=== PATIENT | female | born 1940 | race Hispanic/Latino ===

== ENCOUNTER 2017-09-25 09:20 | Emergency (ER) | payer MEDICARE | END 2017-09-25 10:42 | disposition home or self-care (01) | LOC: EDH 09:20 | DX: E78.5 Hyperlipidemia, unspecified (principal); I10 Essential (primary) hypertension; F41.9 Anxiety disorder, unspecified; Z98.890 Other specified postprocedural states | CPT/HCPCS: 99281 ==

== ENCOUNTER 2018-03-24 04:46 | Emergency (ER) | payer OTHER, MEDICARE ==
[2018-03-24] MEDS ORDERED: MECLIZINE HCL 25 MG TABLET ONE (05:14)
[2018-03-24 05:32] LABS: BASOPHILS % (AUTO) 0.3 % (0.0-5.0); HEMATOCRIT 38.7 % (36-48); LYMPHOCYTES % (AUTO) 30.5 % (21.0-51.0); MEAN CORPUSCULAR HEMOGLOBIN 27.7 pg (27.0-33.0); MEAN CORPUSCULAR HGB CONC 33.5 g/dL (32.0-36.0); MEAN CORPUSCULAR VOLUME 82.6 fL (79-99); MONOCYTES % (AUTO) 10.8 % (3.0-13.0); NEUTROPHILS % (AUTO) 56.4 % (40.0-77.0); PLATELET COUNT (AUTO) 183 K/uL (130-400); RED BLOOD CELL COUNT(AUTO) 4.68 MIL/uL (4.00-5.50); RED CELL DISTRIBUTION WIDTH 15.2 % (11.0-15.5)
[2018-03-24 05:39] LABS: CREATININE 0.7 mg/dL (0.5-1.5); POTASSIUM 3.7 mmol/L (3.5-5.1)
[2018-03-24 05:43] LABS: ALBUMIN 3.5 g/dL (3.5-5.0); BILIRUBIN,TOTAL 0.7 mg/dL (0.2-1.0); TOTAL PROTEIN, SERUM 6.6 g/dL (6.0-8.3)
[2018-03-24 06:30] LABS: APPEARANCE,URINE CLEAR (CLEAR); BILIRUBIN,URINE NEGATIVE (NEGATIVE); COLOR,URINE YELLOW (YELLOW); GLUCOSE, URINE (UA) NEGATIVE (NEGATIVE); KETONES,URINE NEGATIVE (NEGATIVE); LEUKOCYTE ESTERASE ,URINE NEGATIVE (NEGATIVE); NITRATE,URINE NEGATIVE (NEGATIVE); OCCULT BLOOD,URINE NEGATIVE (NEGATIVE); PROTEIN,URINE NEGATIVE (NEGATIVE); UROBILINOGEN,URINE 0.2 mg/dL (0.2-1.0)
[2018-03-24] MEDS ORDERED: SODIUM CHLORIDE 0.9% 500ML 500 ML IV ONE (06:53)
== END 2018-03-24 07:35 | disposition home or self-care (01) ==
LOC: EDH 04:46
DX: H81.399 Other peripheral vertigo, unspecified ear (principal); E86.0 Dehydration; E78.5 Hyperlipidemia, unspecified; I10 Essential (primary) hypertension; F41.9 Anxiety disorder, unspecified; I25.10 Atherosclerotic heart disease of native coronary artery without angina pectoris; Z98.890 Other specified postprocedural states; Z72.0 Tobacco use
CPT/HCPCS: 36415; 80053; 81003; 85025; 93005; 99284; J7040

== ENCOUNTER 2018-12-26 14:31 | Emergency (ER) | payer OTHER, MEDICARE ==
[2018-12-26] MEDS ORDERED: IPRATROPIUM/ALBUTEROL SULFATE 3 ML SOLUTION IH ONE (14:55)
[2018-12-26 15:02] LABS: BASOPHILS % (AUTO) 0.4 % (0.0-5.0); EOSINOPHILS % (AUTO) 2.1 % (0.0-8.0); HEMATOCRIT 37.3 % (36-48); LYMPHOCYTES % (AUTO) 14.3 % (21.0-51.0); MEAN CORPUSCULAR HEMOGLOBIN 27.3 pg (27.0-33.0); MEAN CORPUSCULAR VOLUME 80.3 fL (79-99); NEUTROPHILS % (AUTO) 74.2 % (40.0-77.0); PLATELET COUNT (AUTO) 205 K/uL (130-400); RED BLOOD CELL COUNT(AUTO) 4.65 MIL/uL (4.00-5.50); RED CELL DISTRIBUTION WIDTH 16.3 % (11.0-15.5); WHITE BLOOD COUNT (AUTO) 6.2 K/uL (4.8-10.8)
[2018-12-26 15:08] LABS: CREATININE 0.8 mg/dL (0.5-1.5); POTASSIUM 3.5 mmol/L (3.5-5.1)
== END 2018-12-26 15:41 | disposition home or self-care (01) ==
LOC: EDH 14:31
DX: J06.9 Acute upper respiratory infection, unspecified (principal); F41.9 Anxiety disorder, unspecified; E78.5 Hyperlipidemia, unspecified; I10 Essential (primary) hypertension; I25.10 Atherosclerotic heart disease of native coronary artery without angina pectoris; Z72.0 Tobacco use; Z88.0 Allergy status to penicillin; Z98.890 Other specified postprocedural states
CPT/HCPCS: 36415; 71046; 80048; 85025; 87804; 94640

== ENCOUNTER 2019-02-09 05:02 | Emergency (ER) | payer OTHER, MEDICARE ==
[2019-02-09] MEDS ORDERED: ACETAMINOPHEN-CODEINE 300/30MG TAB ONE (05:56)
[2019-02-09] MEDS ORDERED: ACETAMINOPHEN EXTRA STRENGTH 500 MG TABLET ONE (05:58)
== END 2019-02-09 09:07 | disposition home or self-care (01) ==
LOC: EDH 05:02
DX: S40.012A Contusion of left shoulder, initial encounter (principal); S00.12XA Contusion of left eyelid and periocular area, initial encounter; M62.838 Other muscle spasm; R07.89 Other chest pain; I25.10 Atherosclerotic heart disease of native coronary artery without angina pectoris; E78.5 Hyperlipidemia, unspecified; I10 Essential (primary) hypertension; F41.9 Anxiety disorder, unspecified; Z88.0 Allergy status to penicillin; Z88.8 Allergy status to other drugs, medicaments and biological substances; Z98.890 Other specified postprocedural states; Z72.0 Tobacco use; W18.09XA Striking against other object with subsequent fall, initial encounter; Y93.01 Activity, walking, marching and hiking; Y92.89 Other specified places as the place of occurrence of the external cause; Y99.8 Other external cause status
CPT/HCPCS: 70450; 70486; 72125; 84484; 93005

== ENCOUNTER 2024-03-18 06:28 | Observation (INO) | payer OTHER, MEDICARE ==
[~2024-03-18] VITALS: Ht 160 cm; Wt 69.4 kg
[~2024-03-18 06:28] MED LIST: ALPR0.255 PO; AMLO-258 PO; ASPI-1005 PO; ATOR10 PO; METO-391 PO; MUPI22OI2 TP; OLME40TA18 PO; POTA-200 PO
[2024-03-18 07:03] LABS: BASOPHILS # (AUTO) 0.02 K/uL (0.00-0.20); BASOPHILS % (AUTO) 0.3 % (0.0-5.0); EOSINOPHILS # (AUTO) 0.05 K/uL (0.00-0.70); EOSINOPHILS % (AUTO) 0.9 % (0.0-8.0); HEMATOCRIT 35.5 % (36-48); IMMATURE GRANULOCYTE ABSOLUTE 0.04 K/uL (0-1); LYMPHOCYTES # (AUTO) 1.2 K/uL (1.0-4.8); LYMPHOCYTES % (AUTO) 20.8 % (21.0-51.0); MEAN CORPUSCULAR HEMOGLOBIN 28.1 pg (27.0-33.0); MEAN CORPUSCULAR HGB CONC 33.5 g/dL (32.0-36.0); MEAN CORPUSCULAR VOLUME 83.7 fL (79-99); MONOCYTES # (AUTO) 0.6 K/uL (0.1-1.0); MONOCYTES % (AUTO) 9.9 % (3.0-13.0); NEUTROPHILS % (AUTO) 67.4 % (40.0-77.0); PLATELET COUNT (AUTO) 245 K/uL (130-400); RED BLOOD CELL COUNT(AUTO) 4.24 MIL/uL (4.00-5.50); RED CELL DISTRIBUTION WIDTH 14.8 % (11.0-15.5); WHITE BLOOD COUNT (AUTO) 5.9 K/uL (4.8-10.8)
--- NOTE | 2024-03-18 07:14 | EKG ---
[facility] Test Date: 2024-03-18 Test Time: 07:04:11 Pat Name: JOSETTE LOJA Department: [facility] Room: ED Gender: F Academic Dean: [id number] : 1940 Requested By: KEILA BAILEY Order Number: [id number] Reading MD: Shiloh Wagner Measurements Intervals [place] Rate: 55 P: 23 ID: 142 QRS: -38 QRSD: 104 T: 51 QT: 478 QTc: 459 Interpretive Statements Sinus rhythm Incomplete RBBB and LAFB Compared to ECG 01/25/2024 06:37:12 Incomplete right bundle-branch block now present Right bundle-branch block now present Electronically Signed On 03-18-2024 13:14:56 [employer] by Shiloh Wagner Please click the below link to view image of tracing.
--- NOTE | 2024-03-18 07:17 | ERN ---
General Chief Complaint: Syncope Stated Complaint: WEAKNESS, SYNCOPAL EPISODE THIS MORNING Time Seen by MD: 07:08 Source: patient History of Present Illness Initial Comments Patient is a an 83-year-old female coming in to be evaluated after she had a s yncopal episode. Patient states that earlier in the morning she was combing her hair and next thing she remembers has been on the floor. Patient has also been complaining of a cough for a couple of days. Patient also disclose that she has been having left sided headaches for a couple of days. Allergies: Coded Allergies: Penicillins (Unverified Allergy, Unknown, 02/09/19) diphenhydramine (Unverified Allergy, Unknown, 02/09/19) Home Meds Active Scripts Mupirocin (Mupirocin Ointment) 2 % Oint, 0 APPL TP TID, #1 APPL 0 Refills One application to clean left ankle skin tear3 times a day for 10 days. Prov:MOSES WHITING 01/27/24 Reported Medications Aspirin (ASPIRIN 81MG CHEW TAB) 81 Mg Tab.chew, 1 TAB PO DAILY for 30 Days, #30 TAB 0 Refills 01/26/24 Atorvastatin Calcium (LIPITOR) 20 Mg Tab, 1 TAB PO DAILY for 30 Days, #30 TAB 0 Refills 01/25/24 Olmesartan Medoxomil (Olmesartan Medoxomil) 40 Mg Tablet, 1 TAB PO DAILY for 30 Days, #30 TAB 0 Refills 01/25/24 Alprazolam (Alprazolam) 0.25 Mg Tablet, 1 TAB PO TIDP PRN for anxiety for 30 Days, #90 TAB 0 Refills 01/25/24 Amlodipine Besylate (Amlodipine Besylate) 10 Mg Tablet, 1 TAB PO DAILY for 30 Days, #30 TAB 0 Refills 01/25/24 Potassium Chloride (Potassium Chloride) 10 Meq Tab.er.prt, 1 TAB PO DAILY for 30 Days, #30 TAB 0 Refills 01/25/24 Metoprolol Succinate (Metoprolol Succinate) 50 Mg Tab.er.24h, 1 TAB PO BID for 30 Days, #30 TAB 0 Refills 01/25/24 Past Medical History Past Medical History: COPD, High Cholesterol, Hypertension Past Surgical History: Other Family History Family History: Negative Social History Social History: Negative Female( History) History: Not Applicable ROS Dictation CONSTITUTIONAL: No chills, no fever, no weakness, no diaphoresis, no malaise. HEAD/FACE: No signs of trauma. EENT: No eye pain, no blurred vision, no tearing, no double vision, no ear pain, no ear discharge, no nose pain, no nasal congestion, no throat pain, no throat swelling, no mouth pain. RESPIRATORY: No cough, no orthopnea, no SOB, no stridor, no wheezing. CARDIOVASCULAR: No chest pain, no edema, no palpitations, no syncope. GASTROINTESTINAL/ABDOMINAL: No abdominal pain, no constipation, no diarrhea, no nausea, no vomiting. GENITOURINARY: No abnormal discharge, no dysuria, no frequent urination, no hematuria. No complaints of pain in the genitals. MUSCULOSKELETAL: No back pain, no gout, no joint pain, no joint swelling, no muscle pain, no muscle stiffness, no neck pain. INTEGUMENTARY: No change in color, no change in hair/nails, no dryness, no lesion, no lumps, no rash. NEUROLOGICAL/PSYCH: No anxiety, not depressed, no emotional problem, no h eadache, no numbness, no pre-existing deficit, no history of seizures, no tremors, no weakness. HEMATOLOGIC/LYMPHATIC: Not anemic, no history of blood clots, no apparent bleeding, no bruising, glands not swollen. All Systems Negative, Except as Noted. Physical Exam Physical Exam Dictation VITAL SIGNS: Reviewed. GENERAL APPEARANCE: Alert, oriented x3, no acute distress, obese. HEAD AND FACE: Non-traumatic. EYES: PERRL, pink conjunctivas, eyelid no trauma, anterior chamber clear. EARS: Pinnas intact and no signs of trauma or erythema. Ear canals clear and no discharge. TMs no erythema. NOSE: No discharge, no bleeding. OROPHARYNX: Mouth normal, teeth no caries, tongue pink. Pharynx clear, no erythema. Tonsils no exudates, no abscesses noted. Mucous membrane moist. NECK: Supple, non-tender, no thyromegaly, no masses, no JVD, no bruits. BREAST: Deferred. CHEST: No tenderness, no crepitus, no paradoxical movement, no retractions. LUNGS: Clear, well-ventilated, symmetric, no rales, no wheezing, no rhonchi, no stridor, good breath sounds bilaterally. HEART: Regular rate, regular rhythm, no murmur, no gallops. VASCULAR: No peripheral edema. ABDOMEN: Soft, positive bowel sounds, nondistended, no guarding, nontender, no rebound, no masses no hepatomegaly, no splenomegaly, no Wade's sign, no hernias. RECTAL: Deferred. GENITAL: Deferred. NEUROLOGICAL: Normal speech, gross motor function intact, gross sensory function intact. MUSCULOSKELETAL: Neck nontender, full range of motion, back nontender, full range of motion. EXTREMITIES: Nontender, full range of motion. SKIN: Color pink, dry, no turgor, no rash, no lacerations, no abrasions, no contusions. LYMPHATICS: Deferred. Results Laboratory and Microbiology Lab and Micro Result Laboratory Tests Test 03/18/24 06:49 03/18/24 06:58 03/18/24 08:41 White Blood Count 5.9 K/uL (4.8-10.8) Red Blood Count 4.24 MIL/uL (4.00-5.50) Hemoglobin 11.9 g/dL (12.0-16.0) L Hematocrit 35.5 % (36-48) L Mean Corpuscular Volume 83.7 fL (79-99) Mean Corpuscular Hemoglobin 28.1 pg (27.0-33.0) Mean Corpuscular Hemoglobin Concent 33.5 g/dL (32.0-36.0) Red Cell Distribution Width 14.8 % (11.0-15.5) Platelet Count 245 K/uL (130-400) Mean Platelet Volume 8.3 fL (7.5-10.5) Immature Granulocyte % (Auto) 0.7 % (0-1) Neutrophils (%) (Auto) 67.4 % (40.0-77.0) Lymphocytes (%) (Auto) 20.8 % (21.0-51.0) L Monocytes (%) (Auto) 9.9 % (3.0-13.0) Eosinophils (%) (Auto) 0.9 % (0.0-8.0) Basophils (%) (Auto) 0.3 % (0.0-5.0) Neutrophils # (Auto) 4.0 K/uL (1.8-7.7) Lymphocytes # (Auto) 1.2 K/uL (1.0-4.8) Monocytes # (Auto) 0.6 K/uL (0.1-1.0) Eosinophils # (Auto) 0.05 K/uL (0.00-0.70) Basophils # (Auto) 0.02 K/uL (0.00-0.20) Absolute Immature Granulocyte (auto 0.04 K/uL (0-1) Nucleated Red Blood Cells 0.0 % (0.0-0.19) Sodium Level 133 mmol/L (136-145) L Potassium Level 3.1 mmol/L (3.5-5.1) L Chloride Level 97 mmol/L (101-111) L Carbon Dioxide Level 27 mmol/L (21-32) Blood Urea Nitrogen 8 mg/dL (7-18) Creatinine 0.9 mg/dL (0.5-1.0) Glomerular Filtration Rate Calc 64 mL/min (>90) Random Glucose 113 mg/dL (70-105) H Total Calcium 8.9 mg/dL (8.5-10.1) Magnesium Level 1.80 mg/dL (1.80-2.40) Troponin I High Sensitivity 10 ng/L (4-50) B-Type Natriuretic Peptide 74 pg/mL (0-100) Influenza Type A Antigen Negative For Type A Influenza Type B Antigen Negative For Type B SARS-CoV-2, RNA, NAAT NEGATIVE SARS CoV-2 Urine Color COLORLESS (YELLOW) Urine Appearance CLEAR (CLEAR) Urine pH 6.5 (5.0-8.0) Urine Specific Lottie 1.005 (1.001-1.031) Urine Protein NEGATIVE mg/dL (NEGATIVE) Urine Glucose (UA) NEGATIVE mg/dL (NEGATIVE) Urine Ketones NEGATIVE mg/dL (NEGATIVE) Urine Occult Blood NEGATIVE (NEGATIVE) Urine Nitrate NEGATIVE (NEGATIVE) Urine Bilirubin NEGATIVE mg/dL (NEGATIVE) Urine Urobilinogen 0.2 mg/dL (0.2-1.0) Urine Leukocyte Esterase NEGATIVE Kelly/uL Urine RBC 0-1 /HPF (0-1) Urine WBC 0-1 /HPF (0-1) Urine Squamous Epithelial Cells RARE /HPF (0-2) Urine Bacteria None /HPF (None Seen) Labs Reviewed?: Yes EKG/XRAY/US/CT/MRI EKG Comment 03/28/2024 time 7:04 a.m. Ventricular rate [address] wave elevation or depression [place] 142 CT Scan Comment [address] [place] [address] IMAGING REPORT Signed PATIENT: JOSETTE LOJA MR#: [id number] : 1940 SEX: F AGE: 83 LOCATION: [facility] ORDER 4 STATUS: REG ER REPORT#: [id number] SERVICE REASON: syncope/ headache ORDERING PHYSICIAN: JESUS BIGGS MD PROCEDURE: HEAD WO - CT HEAD/BRAIN W/O CONTRAST CT HEAD/BRAIN W/O CONTRAST HISTORY: Syncope COMPARISON: 02/09/2019 TECHNIQUE: Multiple sequential axial images of the head were obtained from the base of the skull through vertex. Patient was not given contrast through intravenous route. FINDINGS: The ventricles and extraventricular CSF spaces are dilated consistent with cerebral atrophy. Nonspecific white matter changes seen. There is no midline shift, mass effect or herniation. No acute intracranial bleed is seen. Visualized portion of the paranasal sinuses are grossly within normal limits. Radiopaque densities are again seen near the medial aspect of the tentorium bilaterally unchanged. IMPRESSION: 1. No acute intracranial bleed is seen. 2. Atrophy with white matter changes. CT was performed with one or more following dose reduction techniques: automated exposure control, adjustment of the mA and kv according to patient's size, or use of a iterative reconstruction technique. DICTATED BY: JASON OVALLES MD DATE: 03/18/24822 ELECTRONICALLY SIGNED BY: JASON OVALLES MD DATE: 03/18/24826 [facility] MDM: Differential diagnosis: Syncope and collapse, cough, URI, Rationale: Tests considered and ordered secondary to shared decision making include: Previous outside records reviewed: Old ER visits. Risk of complication and/or morbidity or mortality of patient management: None Medications-Per medication reconciliation Need for hospitalization: Patient does meet criteria for hospitalization. Need for emergency major/minor surgery: No There are no social concerns with this patient. Prescription drug management Prescriptions will include symptomatic care Patient's prior external medical records from other ER visits were reviewed by me as indicated. Prior testing and results from previous visits were reviewed. Prior tests were taken into account with medical decision making and resource utilization, independent historian/historians were used to obtain complete medical history. I independently interpreted the test that were performed, results were reviewed by me and considered findings on radiology if ordered. Medical management and examination interpretation discussions were had by me with other qualified healthcare professionals as indicated for the patient's c are. Patient will be admitted under the care of [facility] for ongoing management evaluation of a syncopal episode. ED Course Orders Procedure Category Date Status Time Cbc With Differential LAB 03/18/24 Complete 06:44 Basic Metabolic Panel LAB 03/18/24 Complete 06:44 12 Lead Ekg Tracing- EKG 03/18/24 Complete Technical 06:44 Troponin I High LAB 03/18/24 Complete Sensitivity 06:44 Bedside Troponin-I LAB.ER 03/18/24 In Process (Poc) 06:44 B-Type Natriuretic LAB 03/18/24 Complete Peptide 06:44 Chest 1vw RAD 03/18/24 Resulted 06:44 Urinalysis LAB 03/18/24 Complete W/Microscopic 07:09 Ct Head/Brain W/O CT 03/18/24 Resulted Contrast 07:14 Covid Rna Naat LAB 03/18/24 Complete 07:14 Influenza Type A & B, LAB 03/18/24 Complete Rapid 07:14 Magnesium LAB 03/18/24 Complete 07:51 Vital Signs Date Time Temp Pulse Resp B/P (MAP) Pulse Ox O2 Delivery O2 Flow Rate FiO2 03/18/24 07:19 98.2 64 18 133/66 98 Room Air* 0 21 03/18/24 06:58 98.2 60 18 136/66 99 Room Air* 0 21 03/18/24 06:31 98.4 84 16 151/79 98 Room Air 0 03/18/24 06:29 98.4 84 16 151/79 98 Room Air* 0 21 HEART Score Response (Comments) Value History: High suspicion (+2) 2 EKG: Repolarization changes 1 Age: > 65yrs (+2) 2 Risk Factors: 3+ risk factors (+2) 2 Initial Troponin: Normal limit (0) 0 HEART Score Risk: High Risk for MACE (7-10) Total 7 DX & DISP Disposition: Inpatient Decision to Admit Time: 09:57 Departure Impression: Primary Impression: Syncope and collapse Condition: Stable Referrals: MICKI CHILEL DO (PCP) JESUS BIGGS MD Mar 18, 2024 07:17
[2024-03-18 07:18] LABS: CREATININE 0.9 mg/dL (0.5-1.0); POTASSIUM 3.1 mmol/L (3.5-5.1)
[2024-03-18 07:37] LABS: B-TYPE NATRIURETIC PEPTIDE 74 pg/mL (0-100)
[2024-03-18 08:05] LABS: SARS-CoV-2, RNA, NAAT NEGATIVE SARS CoV-2 (NEGATIVE)
[2024-03-18 08:12] LABS: INFLUENZA TYPE A Negative For Type A (NEGATIVE); INFLUENZA TYPE B Negative For Type B (NEGATIVE)
--- NOTE | 2024-03-18 08:27 | HMCIMG ---
CT HEAD/BRAIN W/O CONTRAST HISTORY: Syncope COMPARISON: 02/09/2019 TECHNIQUE: Multiple sequential axial images of the head were obtained from the base of the skull through vertex. Patient was not given contrast through intravenous route. FINDINGS: The ventricles and extraventricular CSF spaces are dilated consistent with cerebral atrophy. Nonspecific white matter changes seen. There is no midline shift, mass effect or herniation. No acute intracranial bleed is seen. Visualized portion of the paranasal sinuses are grossly within normal limits. Radiopaque densities are again seen near the medial aspect of the tentorium bilaterally unchanged. IMPRESSION: 1. No acute intracranial bleed is seen. 2. Atrophy with white matter changes. CT was performed with one or more following dose reduction techniques: automated exposure control, adjustment of the mA and kv according to patient's size, or use of a iterative reconstruction technique.
--- NOTE | 2024-03-18 08:45 | HMCIMG ---
CHEST 1VW HISTORY: Syncope COMPARISON: None FINDINGS: A frontal projection of the chest was obtained. No acute pulmonary infiltrates is seen. The heart is normal in size. Degenerative changes are seen. Aortic calcifications are seen. IMPRESSION: 1. No acute pulmonary infiltrate is seen.
[2024-03-18 09:26] LABS: APPEARANCE,URINE CLEAR (CLEAR); BILIRUBIN,URINE NEGATIVE (NEGATIVE); COLOR,URINE COLORLESS (YELLOW); GLUCOSE, URINE (UA) NEGATIVE (NEGATIVE); KETONES,URINE NEGATIVE (NEGATIVE); LEUKOCYTE ESTERASE ,URINE NEGATIVE Leu/uL (NEGATIVE); NITRATE,URINE NEGATIVE (NEGATIVE); OCCULT BLOOD,URINE NEGATIVE (NEGATIVE); PH,URINE 6.5 (5.0-8.0); PROTEIN,URINE NEGATIVE (NEGATIVE); UROBILINOGEN,URINE 0.2 mg/dL (0.2-1.0)
[2024-03-18 09:48] LABS: MUCUS,URINE RARE LPF (None Seen); RBC,URINE 0-1 /HPF (0-1); SQUAMOUS EPITHELIAL CELL,UR RARE /HPF (0-2); WBC,URINE 0-1 /HPF (0-1)
[2024-03-18] MEDS ORDERED: DiphenhydrAMINE HCL 50 MG/ML VIAL IV PRN (11:00)
[2024-03-18] MEDS ORDERED: DiphenhydrAMINE HCL 25 MG CAPSULE PO PRN (11:00)
[2024-03-18] MEDS ORDERED: ARTIFICAL TEARS SOL 15 ML OP PRN (11:00)
[2024-03-18] MEDS ORDERED: guaiFENesin-DM 200/20MG 10ML PO PRN (11:00)
[2024-03-18] MEDS ORDERED: ALBUTEROL 0.083% 2.5 MG/3 ML INH IH PRN (11:00)
[2024-03-18] MEDS ORDERED: NITROGLYCERIN 0.4 MG SL TAB SL PRN (11:00)
[2024-03-18] MEDS ORDERED: acetaMINOPHEN 325 MG TAB PO PRN ×2 (11:00)
[2024-03-18] MEDS ORDERED: BENZOCAINE/MENTH/CETYLPYRD CL 1 EACH LOZENGE MM PRN (11:00)
[2024-03-18] MEDS ORDERED: polyETHYLene GLYCol 3350 17 GM POWD.PACK PO PRN (11:00)
[2024-03-18] MEDS ORDERED: MAG/ALUM/SIMETH 30 ML UDCUP PO PRN (11:00)
[2024-03-18] MEDS ORDERED: doCUSate SODIUM 100 MG CAP PO PRN (11:00)
[2024-03-18] MEDS ORDERED: ondanSETRON 4MG INJ IV PRN (11:00)
[2024-03-18] MEDS ORDERED: LACTULOSE 20 GM/30 ML UDCUP PO PRN (11:00)
[2024-03-18] MEDS ORDERED: LOPERAMIDE HCL 2 MG CAP PO PRN (11:00)
[2024-03-18] MEDS ORDERED: guaiFENesin SUGAR-FREE 100 MG/5 ML UDCUP PO PRN (11:00)
[2024-03-18] MEDS: INSULIN LISpro 100 UNIT/ML 3ML SQ SCH (11:30)
[2024-03-18 11:31] LABS: CREATINE KINASE, TOTAL 40 U/L (21-232)
[2024-03-18 11:33] LABS: AMMONIA < 10 umol/L (11-32)
--- NOTE | 2024-03-18 13:08 | HMCIMG ---
US CAROTID DUPLEX HISTORY: No additional history given. COMPARISON: None TECHNIQUE: Duplex carotid arterial Doppler ultrasound study was performed. FINDINGS: The common, internal and external carotid arteries are visualized. The peak systolic velocities of right common carotid artery is 45 centimeters per second, right internal carotid artery is 41 centimeters per second, right external carotid artery is 48 centimeters per second, and right vertebral artery is 20 centimeters per second. Right internal carotid artery to right common carotid artery ratio is 0.9. Right vertebral artery is seen with antegrade flow. The peak systolic velocities of left common carotid artery is 37 centimeters per second, left internal carotid artery is 71 centimeters per second, left external carotid artery is 50 centimeters per second, and left vertebral artery is 42 centimeters per second. Left internal carotid artery to left common carotid artery ratio is 2.0. Left vertebral artery is seen with antegrade flow. IMPRESSION: 1. No hemodynamically significant lesion is seen of either extracranial carotid artery system.
[2024-03-18] MEDS ORDERED: ESOM40CA66 PO (17:05)
[2024-03-18] MEDS ORDERED: ALPR0.255 PO (17:05)
[2024-03-18] MEDS ORDERED: DORZ10DR10 OP (17:05)
[2024-03-18] MEDS ORDERED: BRIM5DRO2 OP (17:05)
--- NOTE | 2024-03-18 19:22 | HMCSR ---
APPROVED REPORT EXAM: Two-dimensional and M-mode echocardiogram with Doppler and color Doppler. INDICATION ICD: Syncope 2D Dimensions RVDd2.9 cmLVEF(%)62.6 (>50%)LVED Vol(simp.)56.0 mL IVSd0.8 (0.7-1.1cm)FS(%)34 %LVES Vol(simp.)21.6 mL LVDd5.0 (3.8-5.6cm)LA (2D)3.7 (1.6-4.0cm)LVEF(%, simp.)61 % PWd1.0 (0.7-1.1cm)Ao Root(2D)3.1 (2.0-3.7cm)LA ESV INDEX (4CH)30.60 mL/m2 IVSs0.9 cmLVOT diam1.9 (1.8-2.4cm)LA ESV INDEX (2CH)33.50 mL/m2 LVDs3.3 (2.5-4.0cm)LA ESV INDEX (BP)31.70 mL/m2 PWs1.0 cm Deformation Strain Apical 420.0 % Apical 221.0 % Apical 325.0 % Global Vrpubu18.0 % M-Mode Dimensions EPSS0.9 cm LA (MM)4.6 (1.6-4.0cm) Ao Root(MM)3.4 (2.0-3.7cm) Aortic Valve AoV VTI0.3 mAo Mean GR5.0 mmHgLVOT VTI0.19 m SERENA (VMAX)1.7 cm2AVA (VTI) 1.7 cm2 Mitral Valve MV E Vmax45.1 cm/sDECEL Wmmq379 ms MV A Vmax93.1 cm/sP 1/2 T88 ms E/A ratio0.5MVA (PHT)2.5 cm2 MR Max PG17 mmHg TDI E/E' Spmpvu51.0E/E' Lateral8.8 Medial E' Peak V4.10 cm/sLateral E' Peak V5.10 cm/s Pulmonary Valve PV Vmax0.9 m/s PV Peak GR3.1 mmHg Tricuspid Valve TR Vmax1.6 m/s TR Peak GR10.4 mmHg Left Ventricle The left ventricle is normal size. Poor assessment of wall motion to poor imaging, but no gross abnor malities detected There is normal left ventricular wall thickness. LVEF is 60-65%. Grade 1 diastolic dysfunction Right Ventricle The right ventricle is normal size. The right ventricular systolic function is normal. Atria The left atrium size is normal. The right atrium size is normal. Aortic Valve The aortic valve is normal in structure. Mild aortic regurgitation. There is no aortic valvular steno sis. Mitral Valve The mitral valve is normal in structure. There is no mitral valve regurgitation noted. There is no mi tral valve stenosis. Tricuspid Valve The tricuspid valve is normal in structure. There is no tricuspid valve regurgitation noted. Pulmonic Valve The pulmonary valve is normal in structure. There is no pulmonic valvular regurgitation. Great Vessels The aortic root is normal in size. The IVC is normal in size and collapses >50% with inspiration. Pericardium There is no pericardial effusion. Conclusion LVEF is 60-65%. Grade 1 diastolic dysfunction Mild aortic regurgitation.
--- NOTE | 2024-03-18 20:41 | NUR ---
NURSE BUSY FOR REPORT, JUST RECIEVED AN ADMISSION.
[2024-03-18] MEDS: FAMOTIDINE 20MG TAB PO SCH (20:55)
[2024-03-18] MEDS ORDERED: FAMOTIDINE 20MG VIAL IV SCH (21:00)
--- NOTE | 2024-03-18 21:29 | NUR ---
[employer] AND DAUGHTER AT BEDSIDE.
[2024-03-18] MEDS ORDERED: PoTASSium chloRIDE 20MEQ/100ML 100 ML IV PRN (22:00)
[2024-03-18] MEDS ORDERED: GLUCAGON 1MG KIT 1 MG ML IM PRN (22:00)
[2024-03-18] MEDS ORDERED: DEXTROSE 50%-WATER 50 ML DISP.SYRIN IV PRN (22:00)
--- NOTE | 2024-03-18 22:35 | HP ---
[facility] HISTORY & PHYSICAL Date Patient Seen: Mar 18, 2024 Time of Visit: 22:34 Supervising Physician: Dr. Hamilton Primary Care Physician: MICKI CHILEL DO (PCP) Outpatient Specialists: Dr. 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 After 24 hours a administration of fluids GFR 87 Acute on chronic renal disease Electrolyte derangement (hyponatremia, hypochloremia, hypokalemia, hypomagnesemia) COPD with interstitial fibrosis Anemia chronic disease Former smoker 15 years Chronic problem list: Hypertension, anxiety, acid reflex, COPD, hyperlipidemia History admission due to severe hyponatremia HPI: Ms Ramsay is a an 83-year-old female with a history of COPD, hypercholesteremia, hypertension, and anxiety who presented to [facility] for evaluation of a syncopal episode. Patient stated that earlier in the morning she was combing her hair and next thing she remembers has been on the floor. Patient has also been complaining of a cough for a couple of days. Patient also disclose that she has been having left sided headaches for a couple of days. Patient reported that she could not sleep due to her cough and phlegm. She finally got a bed of 4:30 a.m.. EKG: Sinus bradycardia, heart rate [address] head/brain without contrast: 1. No acute intracranial bleed. 2. Atrophy with white matter changes. I went to assess patient at bedside. Daughter was at bedside he currently waiting for lab results. The patient appeared comfortable, breathing was even and unlabored, appeared in no distress. I informed them of labs, diagnostics, and plan of care. They both asked multiple questions. I answered her questions. They verbalized understanding. Plan and assessment are listed below. PAST MEDICAL HX: see above PAST SURGICAL HX: Left eye cataract surgery x2 SOCIAL HISTORY: Former heavy smoker of 15 years Denied ETOH, or illicit drug use Coded Allergies: Penicillins (Unverified Allergy, Unknown, 02/09/19) ciprofloxacin (Unverified Allergy, Unknown, 03/18/24) diphenhydramine (Unverified Allergy, Unknown, 02/09/19) sulfamethoxazole (Unverified Allergy, Unknown, 03/18/24) trimethoprim (Unverified Allergy, Unknown, 03/18/24) REVIEW OF SYSTEMS: 12 point ROS reviewed with patient. Pertinent positives mentioned above. Otherwise negative. PHYSICAL EXAM: GENERAL: alert, weak, awake oriented x 3 HEENT: EOMI, Sclera non icteric, moist mucosa NECK: Supple, no JVD, trachea midline LUNGS: Clear breath sounds bilaterally. No wheezes HEART: Regular rate and rhythm. Normal S1 and S2, without murmurs ABD: Abdomen soft, nontender. Bowel sounds present EXT: No clubbing cyanosis or edema NEURO: Alert and oriented to person, follows commands Vital Signs (last 8hr) Date Time Temp Pulse Resp B/P (MAP) Pulse Ox O2 Delivery O2 Flow Rate FiO2 03/18/24 20:34 98.4 58 18 123/67 95 Room Air* 0 21 03/18/24 19:26 66 18 122/68 95 Room Air* 0 21 03/18/24 17:31 98.2 75 18 146/68 95 Room Air* 0 21 LABS: Hematology Labs: Test 03/18/24 06:49 Range/Units White Blood Count 5.9 4.8-10.8 K/uL Red Blood Count 4.24 4.00-5.50 MIL/uL Hemoglobin 11.9 L 12.0-16.0 g/dL Hematocrit 35.5 L 36-48 % Mean Corpuscular Volume 83.7 79-99 fL Mean Corpuscular Hemoglobin 28.1 27.0-33.0 pg Mean Corpuscular Hemoglobin Concent 33.5 32.0-36.0 g/dL Red Cell Distribution Width 14.8 11.0-15.5 % Platelet Count 245 130-400 K/uL Mean Platelet Volume 8.3 7.5-10.5 fL Immature Granulocyte % (Auto) 0.7 0-1 % Neutrophils (%) (Auto) 67.4 40.0-77.0 % Lymphocytes (%) (Auto) 20.8 L 21.0-51.0 % Monocytes (%) (Auto) 9.9 3.0-13.0 % Eosinophils (%) (Auto) 0.9 0.0-8.0 % Basophils (%) (Auto) 0.3 0.0-5.0 % Neutrophils # (Auto) 4.0 1.8-7.7 K/uL Lymphocytes # (Auto) 1.2 1.0-4.8 K/uL Monocytes # (Auto) 0.6 0.1-1.0 K/uL Eosinophils # (Auto) 0.05 0.00-0.70 K/uL Basophils # (Auto) 0.02 0.00-0.20 K/uL Absolute Immature Granulocyte (auto 0.04 0-1 K/uL Nucleated Red Blood Cells 0.0 0.0-0.19 % Chemistry Labs: Test 03/18/24 20:51 03/18/24 11:02 03/18/24 06:49 Range/Units Whole Blood Glucose 104 70-110 MG/DL Ammonia < 10 L 11-32 umol/L Total Creatine Kinase 40 # 21-232 U/L Procalcitonin < 0.05 L 0.05-0.5 ng/mL Sodium Level 133 L 136-145 mmol/L Potassium Level 3.1 L 3.5-5.1 mmol/L Chloride Level 97 L 101-111 mmol/L Carbon Dioxide Level 27 21-32 mmol/L Blood Urea Nitrogen 8 7-18 mg/dL Creatinine 0.9 0.5-1.0 mg/dL Glomerular Filtration Rate Calc 64 >90 mL/min Random Glucose 113 H 70-105 mg/dL Total Calcium 8.9 8.5-10.1 mg/dL Magnesium Level 1.80 1.80-2.40 mg/dL Troponin I High Sensitivity 10 4-50 ng/L B-Type Natriuretic Peptide 74 0-100 pg/mL DIAGNOSTICS / RADIOLOGY RESULTS: [ ] PLAN Admit patient to medical floor with telemetry monitoring. Trend troponin and EKGs. Cardiology consult in the morning. No neurology available for consult. Declined MRI due to severe claustrophobia 2D echo in a.m. with heart clinic to read. Carotids US. Aspirin 81 mg p.o. daily. Atorvastatin 40 mg p.o. daily. Reconcile home medications alprazolam, eyedrops, aspirin, amlodipine, atorvastatin, metoprolol succinate, olmesartan, potassium chloride P.r.n. medications for: Pain management, nausea, vomiting, constipation, fever, hypertension Oxygen supplements as needed to maintain oxygen levels equal to greater than 92%. IV gentle hydration. Blood pressure checks every 4 hours and as needed. Reconcile home medications once available. Glucometer checks before meals and after times with insulin regular sliding scale. Monitor renal and liver function. Monitor electrolytes and treat accordingly. A.m. labs: CBC, CMP, Mag, phos, TSH, A1c. DVT and GI prophylaxis NEURO: Minimize central acting medications as possible. Maintain fall precautions, adequate lighting during the day PULMONARY: Supplemental 02 as needed. Maintain aspiration precautions at all times CARDIOVASCULAR: Follow hemodynamics. Vital signs per facility protocol GI & NUTRITION: Continue with nutritional support. Continue stool softeners and laxatives as needed. KIDNEYS & ELECTROLYTES: Strict monitoring of intake, output and overall fluid balance. Avoid nephrotoxic medications to the extent possible. Medications to be dosed according to renal function. Monitor electrolytes and replace as needed ENDOCRINE: Maintain blood glucose between 100-180 at all times. Hypoglycemia protocol in place INFECTIOUS DISEASE: Trend temperature, WBC and procalcitonin level Follow cultures, deescalate antibiotics as soon as possible. Panculture if new onset fever ONCOLOGY/HEMATOLOGY/COAGULATION: Monitor for s/s of bleeding Monitor hemoglobin, coagulation studies as needed SKIN: Pressure ulcer prevention per facility protocol Specialty mattress ORTHO/REHAB: Continue PT/OT Prophylaxis: Continue GI and DVT prophylaxis Code Status: Full Resuscitation Disposition: RIOS KAUR FIBERGLASS ROVING WINDER Mar 18, 2024 22:35
[2024-03-18] MEDS: 0.9% NACL 250ML 250 ML IV SCH (23:32)
[2024-03-18] MEDS: PoTASSium chloRIDE 20MEQ ER 20 MEQ ERTAB PO PRN (23:46)
--- NOTE | 2024-03-19 06:27 | EKG ---
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
[2024-03-19 06:37] LABS: EOSINOPHILS # (AUTO) 0.06 K/uL (0.00-0.70); EOSINOPHILS % (AUTO) 1.3 % (0.0-8.0); HEMATOCRIT 32.8 % (36-48); IMMATURE GRANULOCYTE ABSOLUTE 0.04 K/uL (0-1); LYMPHOCYTES # (AUTO) 1.3 K/uL (1.0-4.8); LYMPHOCYTES % (AUTO) 27.5 % (21.0-51.0); MEAN CORPUSCULAR HEMOGLOBIN 27.8 pg (27.0-33.0); MEAN CORPUSCULAR HGB CONC 33.8 g/dL (32.0-36.0); MEAN CORPUSCULAR VOLUME 82.2 fL (79-99); MONOCYTES # (AUTO) 0.6 K/uL (0.1-1.0); MONOCYTES % (AUTO) 12.4 % (3.0-13.0); NEUTROPHILS # (AUTO) 2.7 K/uL (1.8-7.7); NEUTROPHILS % (AUTO) 57.9 % (40.0-77.0); PLATELET COUNT (AUTO) 227 K/uL (130-400); RED BLOOD CELL COUNT(AUTO) 3.99 MIL/uL (4.00-5.50); RED CELL DISTRIBUTION WIDTH 14.9 % (11.0-15.5); WHITE BLOOD COUNT (AUTO) 4.7 K/uL (4.8-10.8)
[2024-03-19 06:49] LABS: CREATININE 0.7 mg/dL (0.5-1.0); POTASSIUM 3.5 mmol/L (3.5-5.1)
[2024-03-19 12:00] VITALS: BP_SYST 125; BP_SYST 133; BP_SYST 139; BP_DIAS 78; BP_DIAS 81; BP_DIAS 89; PULSE 73; PULSE 77; PULSE 96; RESP 18; RESP 20; TEMP 97.8
--- NOTE | 2024-03-19 12:00 | NUR ---
EDUCATION EDUCATED BOTH PATIENT AND DAUGHTER AT BEDSIDE ON FALL PRECAUTIONS. INSTRUCTED TO USE CALL YADAV AT ALL TIMES WHEN NEEDING TO AMBULATE TO RESTROOM. EDUCATED ON RISKS AND COMPLICATIONS THAT COME WITH FALL. BOTH PATIENT AND DAUGHTER VOICED UNDERSTANDING. CALL YADAV PLACED WITHIN REACH, BED IN LOW POSITION, BED ALARM ACTIVATED. WILL CONTINUE TO MONITOR.
[2024-03-19] MEDS: ALPRAZolam 0.25 MG TABLET PO SCH (12:58)
[2024-03-19 13:20] VITALS: O2SAT 99
--- NOTE | 2024-03-19 14:34 | CONS ---
[facility] CARDIOLOGY CONSULTATION REPORT Date Patient Seen: Mar 19, 2024 Time of Visit: 14:05 Requesting Physician: Joshua Hamilton MD Reason for Consultation: Syncope History of Present Illness: This is an 83-year-old Latin-Surinamese female with a past medical history of multidrug resistant hypertension, hyperlipidemia, prediabetes, chronic hypokalemia on chronic potassium supplements, hyperlipidemia, GERD, anxiety presented to the emergency department 07/18/2023 after she sustained a syncopal episode. The patient reports he has been in her usual state of health and woke up at around 4:30 a.m. in the morning on 07/18/2023. She carried on her usual morning routine. Shortly after making coffee in the kitchen, she went back to her bedroom to get ready for the day and as she was brushing her hair, she had a syncopal episode, the next thing she recalls is finding herself on the floor. She called her granddaughter who summoned EMS. When EMS arrived, felt weak but there was no hypotension reported or other acute findings. She denied any precipitating symptoms of chest pain, palpitations, dizziness, nausea, vomiting or diaphoresis. She offers no recent illnesses, no nausea, vomiting or diarrhea. In the emergency department, she was found to have hypokalemia with a potassium of 3.1, sodium 133 and a magnesium of 1.8. BNP was 74. Troponins were negative. An EKG demonstrated normal sinus rhythm with incomplete right bundle branch block and left anterior fascicular block and nonspecific STT wave abnormalities. She has undergone further assessment with imaging studies on 03/18/[address] scan of the brain which was unremarkable for any acute process. A bilateral carotid Doppler demonstrated no hemodynamic significant stenosis. A 2D echocardiogram demonstrated an LVEF is 60-65%, grade 1 diastolic dysfunction and no significant valvular pathology. Her potassium and magnesium have been supplemented. Past Medical History: Multidrug resistant hypertension Atypical chest pain with Lexiscan Cardiolite stress test 08/14/2014 demonstrating subtle inferior apical ischemia with probable normal variant and likely related to attenuation artifact and considered low risk scan Hyperlipidemia Chronic hyponatremia and hypokalemia Status post withdrawal of hydrochlorothiazide secondary to electrolyte abnormalities GERD Prediabetes Anxiety Past Surgical History: Left eye cataract extraction x2 Family History: Noncontributory Social History: Granddaughter lives with her. She is independent. Attends the adult daycare Habits: Former smoker, quit many years ago. Denies alcohol use or illicit drug use Home Meds: Olmesartan 40 mg p.o. daily Esomeprazole 40 mg daily Alprazolam 0.5 mg t.i.d. Potassium 10 mEq daily Atorvastatin 20 mg daily Metoprolol succinate ER 50 mg p.o. b.i.d. Amlodipine 10 mg p.o. daily Review of Systems: CONST: No fever, fatigue, or weight changes. EYES: No recent vision problems. ENT: No congestion, ear pain, or sore throat. C/V: Positive for syncope as noted in HPI. No chest pain, palpitations, or edema. RESP: No cough, congestion, wheezing or shortness of breath. GI: No abdominal pain, nausea, vomiting, constipation, or diarrhea. : No incontinence or dysuria. SKIN: No rash. NEURO: No headache, focal numbness or weakness, dizziness, or seizures. PSYCH: No depression or anxiety. HEME: No abnormal bruising or bleeding. LYMPH: No swollen glands. Physical Examination: GENERAL: No acute distress. HEAD: Normal with no signs of head trauma. EYES: PERRLA, EOMI, conjunctiva and sclera normal. ENT: Hearing grossly intact, normal oropharynx. NECK: Supple without JVD. There is no tenderness, lymphadenopathy, or masses. No thyromegaly. Normal carotid upstrokes without bruits. LUNGS: Clear breath sounds bilaterally. No wheezes, or rhonchi. HEART: Normal rate and rhythm. Normal S1 and S2 without murmurs, gallop or rub. VASC: Peripheral pulses +2 bilaterally. ABD: Bowel sounds normal, soft, nontender, no masses, no organomegaly. No audible bruits. : Not examined LYMPH: No lymphadenopathy noted. EXT: No clubbing, cyanosis or edema. SKIN: No rashes or lesions noted. NEURO: Awake, alert, and oriented x3. No focal sensory or strength deficits noted. Vital Signs (last 8hr) Date Time Temp Pulse Resp B/P (MAP) Pulse Ox O2 Delivery O2 Flow Rate FiO2 03/19/24 13:20 99 Room Air* 0 21 03/19/24 12:00 77 18 139/89 98 Room Air 03/19/24 12:00 97.9 73 18 133/78 98 Room Air 03/19/24 12:00 96 20 125/81 96 Room Air 03/19/24 10:57 98.4 66 18 127/69 97 Room Air* 0 21 03/19/24 07:32 98.4 63 18 114/62 95 Room Air* 0 21 Laboratory: Hematology Labs: Test 03/19/24 06:28 Range/Units White Blood Count 4.7 L 4.8-10.8 K/uL Red Blood Count 3.99 L 4.00-5.50 MIL/uL Hemoglobin 11.1 L 12.0-16.0 g/dL Hematocrit 32.8 L 36-48 % Mean Corpuscular Volume 82.2 79-99 fL Mean Corpuscular Hemoglobin 27.8 27.0-33.0 pg Mean Corpuscular Hemoglobin Concent 33.8 32.0-36.0 g/dL Red Cell Distribution Width 14.9 11.0-15.5 % Platelet Count 227 130-400 K/uL Mean Platelet Volume 8.2 7.5-10.5 fL Immature Granulocyte % (Auto) 0.9 0-1 % Neutrophils (%) (Auto) 57.9 40.0-77.0 % Lymphocytes (%) (Auto) 27.5 21.0-51.0 % Monocytes (%) (Auto) 12.4 3.0-13.0 % Eosinophils (%) (Auto) 1.3 0.0-8.0 % Basophils (%) (Auto) 0.0 0.0-5.0 % Neutrophils # (Auto) 2.7 1.8-7.7 K/uL Lymphocytes # (Auto) 1.3 1.0-4.8 K/uL Monocytes # (Auto) 0.6 0.1-1.0 K/uL Eosinophils # (Auto) 0.06 0.00-0.70 K/uL Basophils # (Auto) 0.00 0.00-0.20 K/uL Absolute Immature Granulocyte (auto 0.04 0-1 K/uL Nucleated Red Blood Cells 0.0 0.0-0.19 % Chemistry Labs: Test 03/19/24 07:19 03/19/24 06:28 03/18/24 11:02 03/18/24 06:49 Range/Units Whole Blood Glucose 89 70-110 MG/DL Sodium Level 134 L 136-145 mmol/L Potassium Level 3.5 3.5-5.1 mmol/L Chloride Level 100 L 101-111 mmol/L Carbon Dioxide Level 26 21-32 mmol/L Blood Urea Nitrogen 10 7-18 mg/dL Creatinine 0.7 0.5-1.0 mg/dL Glomerular Filtration Rate Calc 87 >90 mL/min Random Glucose 103 70-105 mg/dL Total Calcium 8.6 8.5-10.1 mg/dL Ammonia < 10 L 11-32 umol/L Total Creatine Kinase 40 # 21-232 U/L Procalcitonin < 0.05 L 0.05-0.5 ng/mL Magnesium Level 1.80 1.80-2.40 mg/dL Troponin I High Sensitivity 10 4-50 ng/L B-Type Natriuretic Peptide 74 0-100 pg/mL Diagnostics / Radiology: CT HEAD/BRAIN W/O CONTRAST 03/18/2024: HISTORY: Syncope COMPARISON: 02/09/2019 FINDINGS: The ventricles and extraventricular CSF spaces are dilated consistent with cerebral atrophy. Nonspecific white matter changes seen. There is no midline shift, mass effect or herniation. No acute intracranial bleed is seen. Visualized portion of the paranasal sinuses are grossly within normal limits. Radiopaque densities are again seen near the medial aspect of the tentorium bilaterally unchanged. IMPRESSION: 1. No acute intracranial bleed is seen. 2. Atrophy with white matter changes. Bilateral carotid Doppler 03/18/2024: TECHNIQUE: Duplex carotid arterial Doppler ultrasound study was performed. IMPRESSION: 1. No hemodynamically significant lesion is seen of either extracranial carotid artery system. 2D echocardiogram 03/18/2024: Left Ventricle The left ventricle is normal size. Poor assessment of wall motion to poor imaging, but no gross abnormalities detected There is normal left ventricular wall thickness. LVEF is 60-65%. Grade 1 diastolic dysfunction Aortic Valve The aortic valve is normal in structure. Mild aortic regurgitation. There is no aortic valvular stenosis. Mitral Valve The mitral valve is normal in structure. There is no mitral valve regurgitation noted. There is no mitral valve stenosis. Pericardium There is no pericardial effusion. Conclusion LVEF is 60-65%. Grade 1 diastolic dysfunction Mild aortic regurgitation Impression and Plan: Syncope, unknown etiology: -imaging including CT scan of the brain, bilateral carotid Doppler in 2D echocardiogram unremarkable -normal LV systolic function with an LVEF of 60-65% on 2D echocardiogram 03/18/2024 -patient did have hypokalemia to a potassium of 3.1 but denied any symptoms of chest pain or palpitations or associated dizziness -proceed with a 2 week mobile satellite project site monitor as an outpatient to screen for any arrhythmias and follow-up with Dr. Laurent Dimas for results -cleared for discharge home to follow up at the [facility] for two week MOCT monitor. Hypokalemia, chronic with a potassium of 3.1 on admission: -increase potassium supplementation to potassium chloride 20 mEq p.o. daily -supplement potassium to maintain potassium of 4.0 and magnesium of 2.0 Multidrug resistant hypertension: -no evidence of orthostatic hypotension with orthostatic vital signs 03/19/2024 demonstrated a supine blood pressure 125/81 with pulse of 96, sitting blood pressure of 133/78 with pulse of 98, and standing blood pressure of 139/89 with pulse of 98 -continue her usual antihypertensive drug therapy unchanged Comorbidities: Atypical chest pain with Lexiscan Cardiolite stress test 08/14/2014 demonstrati ng subtle inferior apical ischemia with probable normal variant and likely related to attenuation artifact and considered low risk scan Hyperlipidemia Chronic hyponatremia and hypokalemia Status post withdrawal of hydrochlorothiazide secondary to electrolyte abnormalities GERD Prediabetes Anxiety Cleared for discharge home later today if potassium and magnesium within normal range. Patient to go to [facility] [address] after discharge for placement of a 2 week mobile satellite project site monitor and follow-up with Dr. Dimas for results Obtain a BMP in 2 weeks at [facility] [address] PHYSICIAN ATTESTATION OF PHYSICIAN SHEAR OPERATOR DOCUMENTATION: I attest that I was physically present for the li portions of the service and evaluated the patient with the Physician Wastewater Superintendent, and I reviewed and discussed the case with the Physician Wastewater Superintendent and made modifications to the Physician Wastewater Superintendent's findings and plans of care as documented above PARI PONCE Mar 19, 2024 14:34 LAURENT DIMAS MD Mar 19, 2024 17:15
[2024-03-19 15:54] LABS: MAGNESIUM 1.7 mg/dL (1.80-2.40); POTASSIUM 3.3 mmol/L (3.5-5.1)
[2024-03-19 16:00] VITALS: BP 128/73; PULSE 62; RESP 18; TEMP 98.2
[2024-03-19] MEDS: MAGNESIUM 2GM PREMIX 50ML 50 ML IV PRN (16:24)
[2024-03-19] MEDS: PoTASSium chl 10% ELIXIR 20MEQ 20 MEQ/15 ML UDCUP PO PRN (16:29)
--- NOTE | 2024-03-19 18:04 | DS ---
[facility] DISCHARGE SUMMARY Date Patient Seen: Mar 19, 2024 Time of Visit: 1343 Supervising Physician: Dr. Kumar Primary Care Physician: MICKI CHILEL DO (PCP) Outpatient Specialists: Dr. Dimas, cardiology Inpatient Consults: [facility] cardiology PROBLEM LIST: Syncope, POA, resolved Sinus rhythm with incomplete RBBB and LAFB, POA Acute kidney injury, GFR 64. After 24 hours a administration of fluids GFR 87 Acute on chronic renal disease Electrolyte derangement (hyponatremia, hypochloremia, hypokalemia, hypomagnesemia) COPD with interstitial fibrosis Anemia chronic disease Former smoker 15 years Chronic problem list: Hypertension, anxiety, acid reflex, COPD, hyperlipidemia History admission due to severe hyponatremia HOSPITAL COURSE: HPI (per admitting provider): Ms Ramsay is a an 83-year-old female with a history of COPD, hypercholesteremia, hypertension, and anxiety who pres ented to [facility] for evaluation of a syncopal episode. Patient stated that earlier in the morning she was combing her hair and next thing she remembers has been on the floor. Patient has also been complaining of a cough for a couple of days. Patient also disclose that she has been having left sided headaches for a couple of days. Patient reported that she could not sleep due to her cough and phlegm. She finally got a bed of 4:30 a.m.. EKG: Sinus bradycardia, heart rate [address] head/brain without contrast: 1. No acute intracranial bleed. 2. Atrophy with white matter changes. I went to assess patient at bedside. Daughter was at bedside he currently waiting for lab results. The patient appeared comfortable, breathing was even and unlabored, appeared in no distress. I informed them of labs, diagnostics, and plan of care. They both asked multiple questions. I answered her questions. They verbalized understanding. Plan and assessment are listed below. Patient was seen and examined at bedside with family present. Patient awake alert able to answer simple questions appropriately. Patient denies any chest pain or shortness of breadth. Patient also denies any nausea vomiting or abdominal pain. Patient denies any reoccurrence syncope episodes. Patient's CT head was negative, patient's carotid Dopplers unremarkable patient has orthostatic vital signs unremarkable. Patient has been cleared by Cardiology standpoint for discharge, recommendations were for patient to follow up as an outpatient to have a Holter monitor in place. And to have patient's potassium 4.0 or higher and Mag 2.0 higher patient is electrolytes will be replaced per protocol, and we will increase patient's potassium supplement to 20 mEq daily. Instructed patient will be getting discharged today and will need to follow up with PCP within 3-5 days upon discharge, along with following up Cardiology within 3-5 days upon discharge patient voices understanding and agrees with plan. 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 Continued Medications: Alprazolam (Alprazolam) 0.25 Mg Tablet 0.25 MG PO TID, TAB Amlodipine Besylate (Amlodipine Besylate) 10 Mg Tablet 1 TAB PO DAILY for 30 Days, #30 TAB 0 Refills Aspirin (Aspirin 81MG Chew Tab) 81 Mg Tab.chew 1 TAB PO DAILY for 30 Days, #30 TAB 0 Refills Atorvastatin Calcium (Lipitor) 20 Mg Tab 1 TAB PO DAILY for 30 Days, #30 TAB 0 Refills Brimonidine Tartrate (Alphagan P) 0.1 % Drops 1 DROP OP BID for 30 Days, #5 ML 0 Refills Dorzolamide HCl/Timolol Maleat (Dorzolamide-Timolol Eye Drops) 22.3 Mg-6.8 Mg/Ml Drops 1 DROP OP BID, #10 ML 0 Refills Esomeprazole Magnesium (Esomeprazole Magnesium) 40 Mg Capsule.dr 1 CAP PO DAILY for 30 Days, #30 CAP 0 Refills Metoprolol Succinate (Metoprolol Succinate) 50 Mg Tab.er.24h 1 TAB PO BID for 30 Days, #30 TAB 0 Refills Olmesartan Medoxomil (Olmesartan Medoxomil) 40 Mg Tablet 1 TAB PO DAILY for 30 Days, #30 TAB 0 Refills Potassium Chloride (Potassium Chloride) 10 Meq Tab.er.prt 1 TAB PO DAILY for 30 Days, #30 TAB 0 Refills PHYSICAL EXAM: GENERAL: alert, weak, awake oriented x 3 HEENT: EOMI, Sclera non icteric, moist mucosa NECK: Supple, no JVD, trachea midline LUNGS: Clear breath sounds bilaterally. No wheezes HEART: Regular rate and rhythm. Normal S1 and S2, without murmurs ABD: Abdomen soft, nontender. Bowel sounds present EXT: No clubbing cyanosis or edema NEURO: Alert and oriented to person, follows commands FOLLOW-UP: Follow-up with PCP in 2-3 days Follow up with Cardiology 3-5 days RECOMMENDATIONS: See Discharge Instructions This case was seen and discussed with my supervising physician. 30 minutes spent on discharge process, including evaluation of the patient, discussion with nursing staff, medication reconciliation and follow-up appointments DEBORA DIAZ Mar 19, 2024 18:04
--- NOTE | 2024-03-19 19:25 | NUR ---
DISCHARGE DISCHARGE ORDERS OBTAINED FOR PATIENT TO BE DISCHARGED HOME. NOTIFIED PATIENT AFTER MAGNESIUM DOSAGE FINISHED, OK TO DISCHARGE. PATIENT AND DAUGHTER VOICED UNDERSTANDING. PENDING TREATMENT TO FINISH.
[2024-03-19 19:59] VITALS: BP 114/55; PULSE 62; RESP 16; TEMP 98.1
[2024-03-19] MEDS ORDERED: DORZOLAMIDE HCL/TIMOLOL MALEAT DROPS 10 ML BOTTLE OP SCH (21:00)
[2024-03-19] MEDS ORDERED: metOPROLol sucCINATE 50 MG TAB.SR.24H PO SCH (21:00)
[2024-03-19] MEDS ORDERED: BRIMONIDINE TARTRATE OP SCH (21:00)
[2024-03-20] MEDS ORDERED: PoTASSium chloRIDE 10MEQ SR 10 MEQ/TAB TAB.SR.24H PO SCH (09:00)
[2024-03-20] MEDS ORDERED: LoSARTan 100 MG TABLET PO SCH (09:00)
[2024-03-20] MEDS ORDERED: ASPIRIN 81MG CHEW TAB PO SCH (09:00)
[2024-03-20] MEDS ORDERED: amLODIPine 5 MG TAB PO SCH (09:00)
[2024-03-20] MEDS ORDERED: atorVAStatin 10 MG TABLET PO SCH (21:00)
== END 2024-03-19 21:06 | disposition home or self-care (01) ==
LOC: EDH 06:28 → EDHIP 10:39 → 2AH 19:29 → EDHIP 22:34 → 3BH 03-19 12:00
PROVIDERS: ADMIT Internal Medicine Critical Care Medicine; ATTEND Internal Medicine Critical Care Medicine
DX: N17.9 Acute kidney failure, unspecified (principal); Z20.822 Contact with and (suspected) exposure to COVID-19; I12.9 Hypertensive chronic kidney disease with stage 1 through stage 4 chronic kidney disease, or unspecified chronic kidney disease; N18.9 Chronic kidney disease, unspecified; J44.9 Chronic obstructive pulmonary disease, unspecified; D63.1 Anemia in chronic kidney disease; E87.8 Other disorders of electrolyte and fluid balance, not elsewhere classified; E87.6 Hypokalemia; E87.1 Hypo-osmolality and hyponatremia; E83.42 Hypomagnesemia; K59.00 Constipation, unspecified; E78.00 Pure hypercholesterolemia, unspecified; F40.240 Claustrophobia; I45.2 Bifascicular block; Z79.82 Long term (current) use of aspirin; Z79.899 Other long term (current) drug therapy; Z87.891 Personal history of nicotine dependence; Z88.0 Allergy status to penicillin; Z88.8 Allergy status to other drugs, medicaments and biological substances
CPT/HCPCS: 99285; 82550; 83735 ×2; 84484; 80048 ×2; 83880; 82140; 85025 ×2; 87804 ×2; 82948 ×6; 81001; 36415 ×2; 87635; 71045; 70450; 93306; 93356; 93880; 93005 ×2; 84145; 96374; 84132; 97161; 97116; 97530 ×2; G0378 ×32; J7050; J3475

== ENCOUNTER 2024-04-14 23:19 | Emergency (ER) | payer OTHER, MEDICARE ==
[~2024-04-14] VITALS: Ht 160 cm; Wt 69.4 kg
[~2024-04-14 23:19] MED LIST changes: +BRIM5DRO2 OP; +DORZ10DR10 OP; +ESOM40CA66 PO; -MUPI22OI2 TP
--- NOTE | 2024-04-14 23:28 | NUR ---
REPORT TO DR CARROLL
[2024-04-14 23:35] LABS: BASOPHILS # (AUTO) 0.02 K/uL (0.00-0.20); BASOPHILS % (AUTO) 0.3 % (0.0-5.0); EOSINOPHILS # (AUTO) 0.11 K/uL (0.00-0.70); EOSINOPHILS % (AUTO) 1.6 % (0.0-8.0); HEMATOCRIT 38.1 % (36-48); IMMATURE GRANULOCYTE ABSOLUTE 0.03 K/uL (0-1); LYMPHOCYTES # (AUTO) 1.9 K/uL (1.0-4.8); LYMPHOCYTES % (AUTO) 26.9 % (21.0-51.0); MEAN CORPUSCULAR HEMOGLOBIN 27.8 pg (27.0-33.0); MEAN CORPUSCULAR HGB CONC 32.8 g/dL (32.0-36.0); MEAN CORPUSCULAR VOLUME 84.7 fL (79-99); MONOCYTES # (AUTO) 0.8 K/uL (0.1-1.0); MONOCYTES % (AUTO) 11.4 % (3.0-13.0); NEUTROPHILS # (AUTO) 4.2 K/uL (1.8-7.7); NEUTROPHILS % (AUTO) 59.4 % (40.0-77.0); PLATELET COUNT (AUTO) 260 K/uL (130-400); RED CELL DISTRIBUTION WIDTH 13.9 % (11.0-15.5)
[2024-04-14 23:42] LABS: CREATININE 0.8 mg/dL (0.5-1.0); POTASSIUM 3.6 mmol/L (3.5-5.1)
[2024-04-14 23:55] LABS: APPEARANCE,URINE CLEAR (CLEAR); BILIRUBIN,URINE NEGATIVE (NEGATIVE); COLOR,URINE COLORLESS (YELLOW); GLUCOSE, URINE (UA) NEGATIVE (NEGATIVE); KETONES,URINE NEGATIVE (NEGATIVE); LEUKOCYTE ESTERASE ,URINE 75 Leu/uL (NEGATIVE); NITRATE,URINE NEGATIVE (NEGATIVE); OCCULT BLOOD,URINE NEGATIVE (NEGATIVE); PH,URINE 6.5 (5.0-8.0); PROTEIN,URINE NEGATIVE (NEGATIVE); UROBILINOGEN,URINE 0.2 mg/dL (0.2-1.0)
[2024-04-15 00:02] LABS: ADD UA MICROSCOPIC YES
[2024-04-15 00:04] LABS: RBC,URINE 0-1 /HPF (0-1)
[2024-04-15 00:05] LABS: BACTERIA,URINE None Seen /HPF (None Seen); MUCUS,URINE Rare LPF (None Seen); NON-SQUAMOUS EPITHELIAL CELL Few /HPF (0-2)
--- NOTE | 2024-04-15 00:35 | HMCIMG ---
CT HEAD/BRAIN W/O CONTRAST HISTORY: Abnormal gait COMPARISON: None TECHNIQUE: Multiple sequential axial images of the head were obtained from the base of the skull through vertex. Patient was not given contrast through intravenous route. FINDINGS: The ventricles and extraventricular CSF spaces are dilated consistent with cerebral atrophy. Nonspecific white matter changes seen. There is no midline shift, mass effect or herniation. No acute intracranial bleed is seen. Visualized portion of the paranasal sinuses are grossly within normal limits. IMPRESSION: 1. No acute intracranial bleed is seen. 2. Atrophy with white matter changes. CT was performed with one or more following dose reduction techniques: automated exposure control, adjustment of the mA and kv according to patient's size, or use of a iterative reconstruction technique.
[2024-04-15 00:44] VITALS: BP 147/78; PULSE 77; RESP 20; TEMP 98.7; O2SAT 100
--- NOTE | 2024-04-15 00:53 | ERN ---
General Chief Complaint: Hypertension Stated Complaint: HIGH BLOOD PRESSURE Time Seen by MD: 23:38 History of Present Illness Initial Comments Mrs Ramsay is an 83 yr old female with a pmhx of type 2 diabetes, hypertension, hyperlipidemia and anxiety comes in today with a chief complaint of weakness. Patient reports that she has had fluctuating blood pressures. Patient's blood pressure is now improved. Patient denies any other symptoms other than generalized weakness. Patient denies any painful urination or infectious s ymptoms Allergies: Coded Allergies: Penicillins (Unverified Allergy, Unknown, 02/09/19) ciprofloxacin (Unverified Allergy, Unknown, 03/18/24) diphenhydramine (Unverified Allergy, Unknown, 02/09/19) sulfamethoxazole (Unverified Allergy, Unknown, 03/18/24) trimethoprim (Unverified Allergy, Unknown, 03/18/24) Home Meds Reported Medications Brimonidine Tartrate (Alphagan P) 0.1 % Drops, 1 DROP OP BID for 30 Days, #5 ML 0 Refills 03/18/24 Dorzolamide HCl/Timolol Maleat (Dorzolamide-Timolol Eye Drops) 22.3 Mg-6.8 Mg/Ml Drops, 1 DROP OP BID, #10 ML 0 Refills 03/18/24 Esomeprazole Magnesium (Esomeprazole Magnesium) 40 Mg Capsule.dr, 1 CAP PO DAILY for 30 Days, #30 CAP 0 Refills 03/18/24 Alprazolam (Alprazolam) 0.25 Mg Tablet, 0.25 MG PO TID, TAB 03/18/24 Aspirin (ASPIRIN 81MG CHEW TAB) 81 Mg Tab.chew, 1 TAB PO DAILY for 30 Days, #30 TAB 0 Refills 01/26/24 Atorvastatin Calcium (LIPITOR) 20 Mg Tab, 1 TAB PO DAILY for 30 Days, #30 TAB 0 Refills 01/25/24 Olmesartan Medoxomil (Olmesartan Medoxomil) 40 Mg Tablet, 1 TAB PO DAILY for 30 Days, #30 TAB 0 Refills 01/25/24 Amlodipine Besylate (Amlodipine Besylate) 10 Mg Tablet, 1 TAB PO DAILY for 30 Days, #30 TAB 0 Refills 24 Potassium Chloride (Potassium Chloride) 10 Meq Tab.er.prt, 1 TAB PO DAILY for 30 Days, #30 TAB 0 Refills 10/10/24 Metoprolol Succinate (Metoprolol Succinate) 50 Mg Tab.er.24h, 1 TAB PO BID for 30 Days, #30 TAB 0 Refills 01/25/24 Past Medical History Past Medical History: COPD, High Cholesterol, Hypertension Past Surgical History: Appendectomy, Family History Family History: Negative Social History Social History: Negative Female( History) History: Not Applicable ROS Dictation Constitutional: Negative for fever,chills, and weight loss Eyes: Negative for injury, pain,redness, and discharge ENT: Negative for injury,pain or swelling Cardiovascular: Negative for chest pain, palpitations, and edema Respiratory: Negative for shortness of breath, cough, and wheezing, Abdomen/GI: Negative for abdominal pain, nausea, vomiting, diarrhea, and constipation Back: Negative for injury and pain : Negative for injury, bleeding and discharge MS/Extremity: Negative for injury and deformity Skin: Negative for rash, and discoloration Neuro: Positive for weakness Psych: Negative for suicide ideation, homicidal ideation, and hallucinations Physical Exam Physical Exam Dictation General: awake, alert, NAD Head/Face: Normocephalic, atraumatic Eyes: PERRL, EOMI, ENT: oral cavity clear, Neck: Trachea midline, supple Cardiovascular: RRR, normal S1/S2, No MRGs, no JVD Respiratory: CTAB, no respiratory distress, No rales or wheezes Abdomen: Soft, non-tender, non-distended, normal bowel sounds, no guarding or rebound. MS/Extremity: Pulses equal, no cyanosis Neuro: COAx4, GCS 15, strength 5/5, CN 2-12 intact Results Laboratory and Microbiology Lab and Micro Result Laboratory Tests Test 04/14/24 23:28 White Blood Count 7.0 K/uL (4.8-10.8) Red Blood Count 4.50 MIL/uL (4.00-5.50) Hemoglobin 12.5 g/dL (12.0-16.0) Hematocrit 38.1 % (36-48) Mean Corpuscular Volume 84.7 fL (79-99) Mean Corpuscular Hemoglobin 27.8 pg (27.0-33.0) Mean Corpuscular Hemoglobin Concent 32.8 g/dL (32.0-36.0) Red Cell Distribution Width 13.9 % (11.0-15.5) Platelet Count 260 K/uL (130-400) Mean Platelet Volume 8.6 fL (7.5-10.5) Immature Granulocyte % (Auto) 0.4 % (0-1) Neutrophils (%) (Auto) 59.4 % (40.0-77.0) Lymphocytes (%) (Auto) 26.9 % (21.0-51.0) Monocytes (%) (Auto) 11.4 % (3.0-13.0) Eosinophils (%) (Auto) 1.6 % (0.0-8.0) Basophils (%) (Auto) 0.3 % (0.0-5.0) Neutrophils # (Auto) 4.2 K/uL (1.8-7.7) Lymphocytes # (Auto) 1.9 K/uL (1.0-4.8) Monocytes # (Auto) 0.8 K/uL (0.1-1.0) Eosinophils # (Auto) 0.11 K/uL (0.00-0.70) Basophils # (Auto) 0.02 K/uL (0.00-0.20) Absolute Immature Granulocyte (auto 0.03 K/uL (0-1) Nucleated Red Blood Cells 0.0 % (0.0-0.19) Urine Color COLORLESS (YELLOW) Urine Appearance CLEAR (CLEAR) Urine pH 6.5 (5.0-8.0) Urine Specific [place] 1.006 (1.001-1.031) Urine Protein NEGATIVE mg/dL (NEGATIVE) Urine Glucose (UA) NEGATIVE mg/dL (NEGATIVE) Urine Ketones NEGATIVE mg/dL (NEGATIVE) Urine Occult Blood NEGATIVE (NEGATIVE) Urine Nitrate NEGATIVE (NEGATIVE) Urine Bilirubin NEGATIVE mg/dL (NEGATIVE) Urine Urobilinogen 0.2 mg/dL (0.2-1.0) Urine Leukocyte Esterase 75 Kelly/uL (NEGATIVE) H Urine RBC 0-1 /HPF (0-1) Urine WBC 2-5 /HPF (0-1) H Urine Non-Squamous Epithelial Cells Few /HPF (0-2) Urine Bacteria None Seen /HPF (None Seen) Sodium Level 131 mmol/L (136-145) L Potassium Level 3.6 mmol/L (3.5-5.1) Chloride Level 95 mmol/L (101-111) L Carbon Dioxide Level 27 mmol/L (21-32) Blood Urea Nitrogen 11 mg/dL (7-18) Creatinine 0.8 mg/dL (0.5-1.0) Glomerular Filtration Rate Calc 74 mL/min (>90) Random Glucose 104 mg/dL (70-105) Total Calcium 9.5 mg/dL (8.5-10.1) MDM Patient was had normalized blood pressure since arriving. CT head is unremarkable. Patient no longer feels weak. Patient denies any other symptoms such as a UTI. Patient was time will be allowed to follow up with the primary care MDM: Differential diagnosis: Wellness check Rationale: Tests considered and ordered secondary to shared decision making include: Previous outside records reviewed: Old ER visits. Risk of complication and/or morbidity or mortality of patient management: None Medications-Per medication reconciliation Need for hospitalization: Patient does not meet criteria for hospitalization. Need for emergency major/minor surgery: No There are no social concerns with this patient. Prescription drug management Prescriptions will include symptomatic care Patient's prior external medical records from other ER visits were reviewed by me as indicated. Prior testing and results from previous visits were reviewed. Prior tests were taken into account with medical decision making and resource utilization, independent historian/historians were used to obtain complete medical history. I independently interpreted the test that were performed, results were reviewed by me and considered findings on radiology if ordered. Medical management and examination interpretation discussions were had by me with other qualified healthcare professionals as indicated for the patient's care. ED Course Orders Procedure Category Date Status Time Urinalysis Profile LAB 04/14/24 Complete 23:20 Cbc With Differential LAB 04/14/24 Complete 23:20 Basic Metabolic Panel LAB 04/14/24 Complete 23:20 Ct Head/Brain W/O CT 04/14/24 Resulted Contrast 23:20 Culture Urine BRIDGETTE 04/15/24 In Process 00:02 Vital Signs Date Time Temp Pulse Resp B/P (MAP) Pulse Ox O2 Delivery O2 Flow Rate FiO2 04/15/24 00:44 98.8 77 20 147/78 100 Room Air* 0 21 04/14/24 23:44 98.8 74 20 164/74 100 Room Air* 0 21 04/14/24 23:20 97.9 77 18 157/96 99 Room Air DX & DISP Disposition: Discharge Departure Impression: Primary Impression: Wellness examination Condition: Stable Additional Instructions: Please follow up with your primary care physician in the next 1-7 days for further evaluation and care. Please check your blood pressure 4 times a day. Referrals: MICKI CHILEL DO (PCP) BERE CARROLL MD Apr 15, 2024 00:53
[2024-04-15 09:29] LABS: GLUCOSE POC COMMENT Notified Nurse
== END 2024-04-15 00:56 | disposition home or self-care (01) ==
LOC: EDH 23:19
DX: I10 Essential (primary) hypertension (principal); R53.1 Weakness; E11.9 Type 2 diabetes mellitus without complications; E78.00 Pure hypercholesterolemia, unspecified; F41.9 Anxiety disorder, unspecified; J44.9 Chronic obstructive pulmonary disease, unspecified; Z79.82 Long term (current) use of aspirin; Z79.899 Other long term (current) drug therapy; Z88.0 Allergy status to penicillin; Z88.1 Allergy status to other antibiotic agents; Z88.2 Allergy status to sulfonamides; Z90.49 Acquired absence of other specified parts of digestive tract
CPT/HCPCS: 36415; 70450; 80048; 81001; 82948; 85025; 87086; 99284

== ENCOUNTER 2024-09-02 12:05 | Emergency (ER) | payer OTHER, MEDICARE ==
[~2024-09-02] VITALS: Ht 160 cm; Wt 72.6 kg
[2024-09-02 12:12] VITALS: TEMP 98.6
[2024-09-02] MEDS: LACTATED RINGERS 1000ML 1,000 ML IV ONE (12:53)
[2024-09-02 13:03] LABS: BASOPHILS # (AUTO) 0.01 K/uL (0.00-0.20); BASOPHILS % (AUTO) 0.2 % (0.0-5.0); EOSINOPHILS # (AUTO) 0.04 K/uL (0.00-0.70); EOSINOPHILS % (AUTO) 0.7 % (0.0-8.0); HEMATOCRIT 35.7 % (36-48); IMMATURE GRANULOCYTE ABSOLUTE 0.09 K/uL (0-1); LYMPHOCYTES # (AUTO) 1.3 K/uL (1.0-4.8); LYMPHOCYTES % (AUTO) 21.4 % (21.0-51.0); MEAN CORPUSCULAR HEMOGLOBIN 27.2 pg (27.0-33.0); MEAN CORPUSCULAR HGB CONC 33.1 g/dL (32.0-36.0); MEAN CORPUSCULAR VOLUME 82.3 fL (79-99); MONOCYTES # (AUTO) 0.7 K/uL (0.1-1.0); MONOCYTES % (AUTO) 12.6 % (3.0-13.0); NEUTROPHILS # (AUTO) 3.8 K/uL (1.8-7.7); NEUTROPHILS % (AUTO) 63.6 % (40.0-77.0); PLATELET COUNT (AUTO) 219 K/uL (130-400); RED BLOOD CELL COUNT(AUTO) 4.34 MIL/uL (4.00-5.50); RED CELL DISTRIBUTION WIDTH 16.4 % (11.0-15.5); WHITE BLOOD COUNT (AUTO) 5.9 K/uL (4.8-10.8)
--- NOTE | 2024-09-02 13:06 | EKG ---
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
--- NOTE | 2024-09-02 13:09 | ERN ---
General Chief Complaint: Blurred/Double Vision Stated Complaint: WEAKNESS,VISION BLURY, FATIGUE Time Seen by MD: 12:08 Source: patient History of Present Illness Initial Comments PATIENT IS A AN 83-YEAR-OLD FEMALE COMING IN DUE TO BLURRY VISION. 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 SHE STATES THAT SHE FELT IF SHE COULD NOT CONTROL HER VISION FOR 2ND AND DECIDED TO COME IN FOR FURTHER EVALUATION. ALONG WITH THIS PATIENT STATES THAT SHE HAS BEEN HAVING GENERALIZED BODY WEAKNESS WELL. Allergies: Coded Allergies: Penicillins (Unverified Allergy, Unknown, 02/09/19) ciprofloxacin (Unverified Allergy, Unknown, 03/18/24) diphenhydramine (Unverified Allergy, Unknown, 02/09/19) sulfamethoxazole (Unverified Allergy, Unknown, 03/18/24) trimethoprim (Unverified Allergy, Unknown, 03/18/24) Home Meds Reported Medications Brimonidine Tartrate (Alphagan P) 0.1 % Drops, 1 DROP OP BID for 30 Days, #5 ML 0 Refills 03/18/24 Dorzolamide HCl/Timolol Maleat (Dorzolamide-Timolol Eye Drops) 22.3 Mg-6.8 Mg/Ml Drops, 1 DROP OP BID, #10 ML 0 Refills 03/18/24 Esomeprazole Magnesium (Esomeprazole Magnesium) 40 Mg Capsule.dr, 1 CAP PO DAILY for 30 Days, #30 CAP 0 Refills 03/18/24 Alprazolam (Alprazolam) 0.25 Mg Tablet, 0.25 MG PO TID, TAB 03/18/24 Aspirin (ASPIRIN 81MG CHEW TAB) 81 Mg Tab.chew, 1 TAB PO DAILY for 30 Days, #30 TAB 0 Refills 01/26/24 Atorvastatin Calcium (LIPITOR) 20 Mg Tab, 1 TAB PO DAILY for 30 Days, #30 TAB 0 Refills 01/25/24 Olmesartan Medoxomil (Olmesartan Medoxomil) 40 Mg Tablet, 1 TAB PO DAILY for 30 Days, #30 TAB 0 Refills 01/25/24 Amlodipine Besylate (Amlodipine Besylate) 10 Mg Tablet, 1 TAB PO DAILY for 30 Days, #30 TAB 0 Refills 01/25/24 Potassium Chloride (Potassium Chloride) 10 Meq Tab.er.prt, 1 TAB PO DAILY for 30 Days, #30 TAB 0 Refills 01/25/24 Metoprolol Succinate (Metoprolol Succinate) 50 Mg Tab.er.24h, 1 TAB PO BID for 30 Days, #30 TAB 0 Refills 01/25/24 Past Medical History Past Medical History: COPD, High Cholesterol, Hypertension Past Surgical History: Appendectomy, Other, Surgical History Other: LT EYE SX Family History Family History: Negative Social History Social History: Negative Female( History) History: Not Applicable ROS Dictation CONSTITUTIONAL: NO CHILLS, NO FEVER, WEAKNESS, NO DIAPHORESIS, NO MALAISE. HEAD/FACE: NO SIGNS OF TRAUMA. EENT: NO EYE PAIN, BLURRED VISION, NO TEARING, NO DOUBLE VISION, NO EAR PAIN, NO EAR DISCHARGE, NO NOSE PAIN, NO NASAL CONGESTION, NO THROAT PAIN, NO THROAT SWELLING, NO MOUTH PAIN. RESPIRATORY: NO COUGH, NO ORTHOPNEA, NO SOB, NO STRIDOR, NO WHEEZING. CARDIOVASCULAR: NO CHEST PAIN, NO EDEMA, NO PALPITATIONS, NO SYNCOPE. GASTROINTESTINAL/ABDOMINAL: NO ABDOMINAL PAIN, NO CONSTIPATION, NO DIARRHEA, NO NAUSEA, NO VOMITING. GENITOURINARY: NO ABNORMAL DISCHARGE, NO DYSURIA, NO FREQUENT URINATION, NO HEMATURIA. NO COMPLAINTS OF PAIN IN THE GENITALS. MUSCULOSKELETAL: NO BACK PAIN, NO GOUT, NO JOINT PAIN, NO JOINT SWELLING, NO MUSCLE PAIN, NO MUSCLE STIFFNESS, NO NECK PAIN. INTEGUMENTARY: NO CHANGE IN COLOR, NO CHANGE IN HAIR/NAILS, NO DRYNESS, NO LESION, NO LUMPS, NO RASH. NEUROLOGICAL/PSYCH: NO ANXIETY, NOT DEPRESSED, NO EMOTIONAL PROBLEM, NO HEADACHE, NO NUMBNESS, NO PRE-EXISTING DEFICIT, NO HISTORY OF SEIZURES, NO TREMORS, NO WEAKNESS. HEMATOLOGIC/LYMPHATIC: NOT ANEMIC, NO HISTORY OF BLOOD CLOTS, NO APPARENT BLEEDING, NO BRUISING, GLANDS NOT SWOLLEN. ALL SYSTEMS NEGATIVE, EXCEPT NOTED. Physical Exam Physical Exam Dictation VITAL SIGNS: REVIEWED. GENERAL APPEARANCE: ALERT, ORIENTED X3, NO ACUTE DISTRESS, OBESE. HEAD AND FACE: NON-TRAUMATIC. EYES: PERRL, PINK CONJUNCTIVAS, EYELID NO TRAUMA, ANTERIOR CHAMBER CLEAR. EARS: PINNAS INTACT AND NO SIGNS OF TRAUMA OR ERYTHEMA. EAR CANALS CLEAR AND NO DISCHARGE. TMS NO ERYTHEMA. NOSE: NO DISCHARGE, NO BLEEDING. OROPHARYNX: MOUTH NORMAL, TEETH NO CARIES, TONGUE PINK. PHARYNX CLEAR, NO ERYTHEMA. TONSILS NO EXUDATES, NO ABSCESSES NOTED. MUCOUS MEMBRANE MOIST. NECK: SUPPLE, NON-TENDER, NO THYROMEGALY, NO MASSES, NO JVD, NO BRUITS. BREAST: DEFERRED. CHEST: NO TENDERNESS, NO CREPITUS, NO PARADOXICAL MOVEMENT, NO RETRACTIONS. LUNGS: CLEAR, WELL-VENTILATED, SYMMETRIC, NO RALES, NO WHEEZING, NO RHONCHI, NO STRIDOR, GOOD BREATH SOUNDS BILATERALLY. HEART: REGULAR RATE, REGULAR RHYTHM, NO MURMUR, NO GALLOPS. VASCULAR: NO PERIPHERAL EDEMA. ABDOMEN: SOFT, POSITIVE BOWEL SOUNDS, NONDISTENDED, NO GUARDING, NONTENDER, NO REBOUND, NO MASSES NO HEPATOMEGALY, NO SPLENOMEGALY, NO JENNINGS'S SIGN, NO HERNIAS. RECTAL: DEFERRED. GENITAL: DEFERRED. NEUROLOGICAL: NORMAL SPEECH, GROSS MOTOR FUNCTION INTACT, GROSS SENSORY FUNCTION INTACT. MUSCULOSKELETAL: NECK NONTENDER, FULL RANGE OF MOTION, BACK NONTENDER, FULL RANGE OF MOTION. EXTREMITIES: NONTENDER, FULL RANGE OF MOTION. SKIN: COLOR PINK, DRY, NO TURGOR, NO RASH, NO LACERATIONS, NO ABRASIONS, NO CONTUSIONS. LYMPHATICS: DEFERRED. Results Laboratory and Microbiology Lab and Micro Result Laboratory Tests Test 09/02/24 12:53 09/02/24 13:27 White Blood Count 5.9 K/uL (4.8-10.8) Red Blood Count 4.34 MIL/uL (4.00-5.50) Hemoglobin 11.8 g/dL (12.0-16.0) L Hematocrit 35.7 % (36-48) L Mean Corpuscular Volume 82.3 fL (79-99) Mean Corpuscular Hemoglobin 27.2 pg (27.0-33.0) Mean Corpuscular Hemoglobin Concent 33.1 g/dL (32.0-36.0) Red Cell Distribution Width 16.4 % (11.0-15.5) H Platelet Count 219 K/uL (130-400) Mean Platelet Volume 8.9 fL (7.5-10.5) Immature Granulocyte % (Auto) 1.5 % (0-1) H Neutrophils (%) (Auto) 63.6 % (40.0-77.0) Lymphocytes (%) (Auto) 21.4 % (21.0-51.0) Monocytes (%) (Auto) 12.6 % (3.0-13.0) Eosinophils (%) (Auto) 0.7 % (0.0-8.0) Basophils (%) (Auto) 0.2 % (0.0-5.0) Neutrophils # (Auto) 3.8 K/uL (1.8-7.7) Lymphocytes # (Auto) 1.3 K/uL (1.0-4.8) Monocytes # (Auto) 0.7 K/uL (0.1-1.0) Eosinophils # (Auto) 0.04 K/uL (0.00-0.70) Basophils # (Auto) 0.01 K/uL (0.00-0.20) Absolute Immature Granulocyte (auto 0.09 K/uL (0-1) Nucleated Red Blood Cells 0.0 % (0.0-0.19) Prothrombin Time 10.0 SEC (9.6-11.6) Prothromb Time International Ratio 0.94 (0.85-1.15) Activated Partial Thromboplast Time 26.4 SEC (26.3-35.5) Sodium Level 133 mmol/L (136-145) L Potassium Level 3.6 mmol/L (3.5-5.1) Chloride Level 99 mmol/L (101-111) L Carbon Dioxide Level 26 mmol/L (21-32) Blood Urea Nitrogen 9 mg/dL (7-18) Creatinine 0.9 mg/dL (0.5-1.0) Glomerular Filtration Rate Calc 64 mL/min (>90) Random Glucose 123 mg/dL (70-105) H Total Calcium 8.7 mg/dL (8.5-10.1) Magnesium Level 1.90 mg/dL (1.80-2.40) Total Creatine Kinase 35 U/L (21-232) Troponin I High Sensitivity 9 ng/L (4-50) B-Type Natriuretic Peptide 127 pg/mL (0-100) H Urine Color LIGHT-YELLOW (YELLOW) Urine Appearance CLEAR (CLEAR) Urine pH 6.5 (5.0-8.0) Urine Specific [place] 1.007 (1.001-1.031) Urine Protein NEGATIVE mg/dL (NEGATIVE) Urine Glucose (UA) NEGATIVE mg/dL (NEGATIVE) Urine Ketones NEGATIVE mg/dL (NEGATIVE) Urine Occult Blood NEGATIVE (NEGATIVE) Urine Nitrate NEGATIVE (NEGATIVE) Urine Bilirubin NEGATIVE mg/dL (NEGATIVE) Urine Urobilinogen 0.2 mg/dL (0.2-1.0) Urine Leukocyte Esterase 25 Kelly/uL (NEGATIVE) H Urine RBC 0-1 /HPF (0-1) Urine WBC 2-5 /HPF (0-1) H Urine Bacteria None /HPF (None Seen) Urine Hyaline Casts 2-5 /LPF (0-1 /LPF) H Labs Reviewed?: Yes EKG/XRAY/US/CT/MRI EKG Comment 09/02/2024 TIME 1:04 P.M. VENTRICULAR RATE 57 SINUS RHYTHM VA [address] WAVE ELEVATION OR DEPRESSION CT Scan Comment [address] [address] IMAGING REPORT Signed PATIENT: JOSETTE LOJA MR#: [id number] : 1940 SEX: F AGE: 83 LOCATION: [facility] ORDER 1240 STATUS: REG REPORT#: [id number] SERVICE 1238 REASON: VISION ORDERING PHYSICIAN: JESUS BIGGS MD PROCEDURE: HEAD WO - CT HEAD/BRAIN W/O CONTRAST Exam Type: CT HEAD/BRAIN W/O CONTRAST Clinical Information: VISION Comparison: None CT Dose Index (CTDI): 57.33 mGy Dose Length Product (DLP): 956.79 total mGy-cm Findings: This study was performed using dose reduction techniques to include automated exposure control and/or adjustment of the mA and/or kV according to patient size. The examination is unremarkable except for atrophy Segura-white matter junction is preserved. No intra or extra axial lesions or fluid collections are seen. Specifically, segura and white matter are normal in signal characteristics with normal caliber of ventricles and periventricular cisterns with no evidence of intra or or extra-axial hemorrhage, lacunar infarct, or major territorial infarct, mass, or other abnormality. There are no infarcts. There are no hemorrhages. Periventricular white matter locations are preserved. The orbital contents and structures of the posterior fossa are intact. Impression: Atrophy. This study was performed using dose reduction techniques to include automated exposure control and/or adjustment of the mA and/or kV according to patient size. MDM MDM: DIFFERENTIAL DIAGNOSIS: DEHYDRATION, UTI, RATIONALE: TESTS CONSIDERED AND ORDERED SECONDARY TO SHARED DECISION MAKING INCLUDE: PREVIOUS OUTSIDE RECORDS REVIEWED: OLD ER VISITS. RISK OF COMPLICATION AND/OR MORBIDITY OR MORTALITY OF PATIENT MANAGEMENT: NONE MEDICATIONS-PER MEDICATION RECONCILIATION NEED FOR HOSPITALIZATION: PATIENT DOES NOT MEET CRITERIA FOR HOSPITALIZATION. PATIENT IS A AN 83-YEAR-OLD FEMALE COMING IN TO BE EVALUATED FOR GENERALIZED BODY WEAKNESS AND 1 SECOND SENSATION OF SHAKING VISION. IMAGING STUDIES NEGATIVE FOR ACUTE FINDINGS MILD DEHYDRATION MILD UTI CT WAS NEGATIVE. PATIENT STATES HE WAS A FOLLOW UP WITH HER PRIMARY CARE PHYSICIAN. PATIENT WILL BE DISCHARGED IN STABLE CONDITION WITH A DIAGNOSIS OF DEHYDRATION UTI. ED Course Orders Procedure Category Date Status Time Cbc With Differential LAB 09/02/24 Complete 12:38 Prothrombin Time With LAB 09/02/24 Complete INR 12:38 B-Type Natriuretic LAB 09/02/24 Complete Peptide 12:38 Chest 1vw RAD 09/02/24 Resulted 12:38 12 Lead Ekg Tracing- EKG 09/02/24 Resulted Technical 12:38 Lactated Ringers PHA 09/02/24 Complete 1000ml (Lactated 13:00 Magnesium LAB 09/02/24 Complete 12:38 Creatine Kinase, Total LAB 09/02/24 Complete 12:38 Troponin I High LAB 09/02/24 Complete Sensitivity 12:38 Urinalysis Profile LAB 09/02/24 Complete 12:38 Partial LAB 09/02/24 Complete Thromboplastin Time 12:38 Basic Metabolic Panel LAB 09/02/24 Complete 12:38 Ct Head/Brain W/O CT 09/02/24 Resulted Contrast 12:38 Levetiracetam 500 PHA 09/02/24 Complete Mg/5 M[address] V (Keppra 5 15:30 Current Medications Medications (Trade) Dose Ordered Sig/Sukh Route PRN Reason Start Time Stop Time Status Last Admin Dose Admin Lactated Ringer's 1,000 ml @ 0 mls/hr ONCE ONCE IV 09/02/24 13:00 09/02/24 13:01 DC 09/02/24 12:53 Levetiracetam (kepPRA 500 MG/5 ML SD VIAL) 500 mg ONCE IV 09/02/24 15:30 09/02/24 15:13 DC Vital Signs Date Time Temp Pulse Resp B/P (MAP) Pulse Ox O2 Delivery O2 Flow Rate FiO2 09/02/24 15:57 76 16 131/71 97 Room Air* 0 21 09/02/24 12:59 57 14 114/64 98 Room Air* 0 21 09/02/24 12:12 98.6 69 16 125/81 96 Room Air 0 DX & DISP Disposition: Discharge Departure Impression: Primary Impression: Dehydration Additional Impression: UTI (urinary tract infection) Condition: Stable Scripts Fosfomycin Tromethamine (Fosfomycin Tromethamine) 3 Gram Packet 3 GM PO DAILY for 3 Days, #3 PKT Prov: JESUS BIGGS MD 09/02/24 Additional Instructions: FOLLOW-UP WITH PRIMARY CARE PROVIDER IN 1 TO 2 DAYS. TAKE MEDICATIONS DIRECTED HERE IN THE EMERGENCY ROOM. OKAY TO CONTINUE HOME MEDICATIONS UNLESS OTHERWISE DISCUSSED DURING YOUR VISIT IN THE EMERGENCY ROOM TODAY. RETURN TO YOUR NEAREST EMERGENCY ROOM IF SYMPTOMS WORSEN OR IF THERE IS NO IMPROVEMENT. CALL 911 IF YOU NEED IMMEDIATE ASSISTANCE. TAKE TYLENOL [id number] NEEDED AND IF NO CONTRAINDICATIONS ARE PRESENT. INCREASE ORAL HYDRATION. A WOUND CULTURE OR URINE CULTURE WAS ORDERED HERE IN THE EMERGENCY ROOM DEPARTMENT PLEASE FOLLOW-UP WITH PRIMARY CARE PROVIDER AND ADVISE THEM TO GET REPEAT PORTS FROM OUR FACILITY. IF YOU HAD ANY EDGARDO WRAP/SPLINTS THAT WERE APPLIED HERE, PLEA SE DO NOT REMOVE THEM UNTIL YOU SEE YOUR PRIMARY CARE OR SPECIALTY. REFERRALS: Referrals: MICKI CHILEL DO (PCP) Time of Disposition: 16:04 JESUS BIGGS MD September 02, 2024 13:09
[2024-09-02 13:10] LABS: INR 0.94 (0.85-1.15)
[2024-09-02 13:11] LABS: PARTIAL THROMBOPLASTIN TIME 26.4 SEC (26.3-35.5)
[2024-09-02 13:13] LABS: CREATININE 0.9 mg/dL (0.5-1.0); MAGNESIUM 1.9 mg/dL (1.80-2.40); POTASSIUM 3.6 mmol/L (3.5-5.1)
[2024-09-02 13:27] LABS: B-TYPE NATRIURETIC PEPTIDE 127 pg/mL (0-100)
--- NOTE | 2024-09-02 14:29 | HMCIMG ---
Exam Type: CT HEAD/BRAIN W/O CONTRAST Clinical Information: VISION Comparison: None CT Dose Index (CTDI): 57.33 mGy Dose Length Product (DLP): 956.79 total mGy-cm Findings: This study was performed using dose reduction techniques to include automated exposure control and/or adjustment of the mA and/or kV according to patient size. The examination is unremarkable except for atrophy Segura-white matter junction is preserved. No intra or extra axial lesions or fluid collections are seen. Specifically, segura and white matter are normal in signal characteristics with normal caliber of ventricles and periventricular cisterns with no evidence of intra or or extra-axial hemorrhage, lacunar infarct, or major territorial infarct, mass, or other abnormality. There are no infarcts. There are no hemorrhages. Periventricular white matter locations are preserved. The orbital contents and structures of the posterior fossa are intact. Impression: Atrophy. This study was performed using dose reduction techniques to include automated exposure control and/or adjustment of the mA and/or kV according to patient size.
[2024-09-02 14:53] LABS: ADD UA MICROSCOPIC YES; APPEARANCE,URINE CLEAR (CLEAR); BILIRUBIN,URINE NEGATIVE (NEGATIVE); COLOR,URINE LIGHT-YELLOW (YELLOW); GLUCOSE, URINE (UA) NEGATIVE (NEGATIVE); KETONES,URINE NEGATIVE (NEGATIVE); LEUKOCYTE ESTERASE ,URINE 25 Leu/uL (NEGATIVE); NITRATE,URINE NEGATIVE (NEGATIVE); OCCULT BLOOD,URINE NEGATIVE (NEGATIVE); PH,URINE 6.5 (5.0-8.0); PROTEIN,URINE NEGATIVE (NEGATIVE); UROBILINOGEN,URINE 0.2 mg/dL (0.2-1.0)
[2024-09-02 14:55] LABS: MUCUS,URINE RARE LPF (None Seen); RBC,URINE 0-1 /HPF (0-1)
--- NOTE | 2024-09-02 15:09 | HMCIMG ---
Exam Type: CHEST 1VW Clinical Information: VISION Comparison: None Findings: The lungs are clear of infiltrates. The heart is normal in size. The bony and soft tissue structures of the chest are unremarkable. Impression: Clear lungs.
[2024-09-02] MEDS ORDERED: leveTIRACEtam 500 MG/5 ML SD VIAL IV SCH (15:30)
[2024-09-02 15:57] VITALS: BP 131/71; PULSE 76; RESP 16; O2SAT 97
[2024-09-02] MEDS ORDERED: FOSF3PAC4 PO (16:07)
== END 2024-09-02 16:26 | disposition home or self-care (01) ==
LOC: EDH 12:05
DX: E86.0 Dehydration (principal); N39.0 Urinary tract infection, site not specified; E78.00 Pure hypercholesterolemia, unspecified; I10 Essential (primary) hypertension; J44.9 Chronic obstructive pulmonary disease, unspecified; Z79.82 Long term (current) use of aspirin; Z79.899 Other long term (current) drug therapy; Z88.0 Allergy status to penicillin; Z88.1 Allergy status to other antibiotic agents; Z88.2 Allergy status to sulfonamides; Z90.49 Acquired absence of other specified parts of digestive tract
CPT/HCPCS: 99285; 96360; 70450; 71045; 82550; 83735; 84484; 80048; 83880; 85025; 85610; 85730; 81001; 36415; 93005; J7120

== ENCOUNTER 2024-11-25 08:20 | Observation (INO) | payer OTHER, MEDICARE ==
[~2024-11-25] VITALS: Ht 160 cm; Wt 65.7 kg
[~2024-11-25 08:20] MED LIST changes: +FOSF3PAC4 PO
[2024-11-25 08:56] LABS: IMMATURE GRANULOCYTE ABSOLUTE 0.08 K/uL (0-1); NUCLEATED RED BLOOD CELLS 0.0 % (0.0-0.19); PLATELET COUNT (AUTO) 284 K/uL (130-400); RED BLOOD CELL COUNT(AUTO) 4.51 MIL/uL (4.00-5.50); RED CELL DISTRIBUTION WIDTH 14.4 % (11.0-15.5); WHITE BLOOD COUNT (AUTO) 6.5 K/uL (4.8-10.8)
[2024-11-25 08:59] LABS: CREATININE 0.6 mg/dL (0.5-1.0); GLOMERULAR FILTR. RATE CALC 90.0 mL/min (>90); GLUCOSE,RANDOM 109.0 mg/dL (70-105); SODIUM SERUM 124.0 mmol/L (136-145); UREA NITROGEN, BLOOD 7.0 mg/dL (7-18)
[2024-11-25 09:03] LABS: APPEARANCE,URINE CLEAR (CLEAR); GLUCOSE, URINE (UA) 70 mg/dL (NEGATIVE); LEUKOCYTE ESTERASE ,URINE NEGATIVE Leu/uL (NEGATIVE); NITRATE,URINE NEGATIVE (NEGATIVE); OCCULT BLOOD,URINE NEGATIVE (NEGATIVE)
[2024-11-25 09:08] LABS: SQUAMOUS EPITHELIAL CELL,UR FEW /HPF (0-2)
--- NOTE | 2024-11-25 09:18 | ERN ---
General Chief Complaint: Lower Extremity Pain/Injury Stated Complaint: LEFT LEG WEAKNESS, Time Seen by MD: 08:23 Source: patient History of Present Illness Initial Comments Patient is a 84-year-old female coming in complaining of generalized body weakn ess. Per patient she got up and her left lower extremity. Patient states that the symptoms resolved with a an admitted. He states he is still feels very weak. Allergies: Coded Allergies: Penicillins (Unverified Allergy, Unknown, 02/09/19) ciprofloxacin (Unverified Allergy, Unknown, 03/18/24) diphenhydramine (Unverified Allergy, Unknown, 02/09/19) sulfamethoxazole (Unverified Allergy, Unknown, 03/18/24) trimethoprim (Unverified Allergy, Unknown, 03/18/24) Home Meds Active Scripts Fosfomycin Tromethamine (Fosfomycin Tromethamine) 3 Gram Packet, 3 GM PO DAILY for 3 Days, #3 PKT Prov:JESUS BIGGS MD 09/02/24 Reported Medications Brimonidine Tartrate (Alphagan P) 0.1 % Drops, 1 DROP OP BID for 30 Days, #5 ML 0 Refills 03/18/24 Dorzolamide HCl/Timolol Maleat (Dorzolamide-Timolol Eye Drops) 22.3 Mg-6.8 Mg/Ml Drops, 1 DROP OP BID, #10 ML 0 Refills 03/18/24 Esomeprazole Magnesium (Esomeprazole Magnesium) 40 Mg Capsule.dr, 1 CAP PO DAILY for 30 Days, #30 CAP 0 Refills 03/18/24 Alprazolam (Alprazolam) 0.25 Mg Tablet, 0.25 MG PO TID, TAB 03/18/24 Aspirin (ASPIRIN 81MG CHEW TAB) 81 Mg Tab.chew, 1 TAB PO DAILY for 30 Days, #30 TAB 0 Refills 01/26/24 Atorvastatin Calcium (LIPITOR) 20 Mg Tab, 1 TAB PO DAILY for 30 Days, #30 TAB 0 Refills 01/25/24 Olmesartan Medoxomil (Olmesartan Medoxomil) 40 Mg Tablet, 1 TAB PO DAILY for 30 Days, #30 TAB 0 Refills 01/25/24 Amlodipine Besylate (Amlodipine Besylate) 10 Mg Tablet, 1 TAB PO DAILY for 30 Days, #30 TAB 0 Refills 01/25/24 Potassium Chloride (Potassium Chloride) 10 Meq Tab.er.prt, 1 TAB PO DAILY for 30 Days, #30 TAB 0 Refills 01/25/24 Metoprolol Succinate (Metoprolol Succinate) 50 Mg Tab.er.24h, 1 TAB PO BID for 30 Days, #30 TAB 0 Refills 01/25/24 Past Medical History Past Medical History: COPD, Depression, High Cholesterol, Heart Disease, Hypertension, UTI Past Surgical History: Appendectomy, Other, Surgical History Other: LT EYE SX Family History Family History: Negative Social History Social History: Negative Female( History) History: Not Applicable ROS Dictation CONSTITUTIONAL: No chills, no fever, weakness, no diaphoresis, malaise. HEAD/FACE: No signs of trauma. EENT: No eye pain, no blurred vision, no tearing, no double vision, no ear pain, no ear discharge, no nose pain, no nasal congestion, no throat pain, no throat swelling, no mouth pain. RESPIRATORY: No cough, no orthopnea, no SOB, no stridor, no wheezing. CARDIOVASCULAR: No chest pain, no edema, no palpitations, no syncope. GASTROINTESTINAL/ABDOMINAL: No abdominal pain, no constipation, no diarrhea, no nausea, no vomiting. GENITOURINARY: No abnormal discharge, no dysuria, no frequent urination, no hematuria. No complaints of pain in the genitals. MUSCULOSKELETAL: No back pain, no gout, no joint pain, no joint swelling, no muscle pain, no muscle stiffness, no neck pain. INTEGUMENTARY: No change in color, no change in hair/nails, no dryness, no lesion, no lumps, no rash. NEUROLOGICAL/PSYCH: No anxiety, not depressed, no emotional problem, no headache, no numbness, no pre-existing deficit, no history of seizures, no tremors, no weakness. HEMATOLOGIC/LYMPHATIC: Not anemic, no history of blood clots, no apparent bleeding, no bruising, glands not swollen. All Systems Negative, Except as Noted. Results Laboratory and Microbiology Lab and Micro Result Laboratory Tests Test 11/25/24 08:36 11/25/24 08:41 Urine Color YELLOW (YELLOW) Urine Appearance CLEAR (CLEAR) Urine pH 6.5 (5.0-8.0) Urine Specific [place] 1.013 (1.001-1.031) Urine Protein 20 mg/dL (NEGATIVE) H Urine Glucose (UA) 70 mg/dL (NEGATIVE) H Urine Ketones NEGATIVE mg/dL (NEGATIVE) Urine Occult Blood NEGATIVE (NEGATIVE) Urine Nitrate NEGATIVE (NEGATIVE) Urine Bilirubin NEGATIVE mg/dL (NEGATIVE) Urine Urobilinogen 0.2 mg/dL (0.2-1.0) Urine Leukocyte Esterase NEGATIVE Kelly/uL Urine RBC 0-1 /HPF (0-1) Urine WBC 2-5 /HPF (0-1) H Urine Squamous Epithelial Cells FEW /HPF (0-2) Urine Bacteria RARE /HPF (None Seen) White Blood Count 6.5 K/uL (4.8-10.8) Red Blood Count 4.51 MIL/uL (4.00-5.50) Hemoglobin 12.6 g/dL (12.0-16.0) Hematocrit 36.8 % (36-48) Mean Corpuscular Volume 81.6 fL (79-99) Mean Corpuscular Hemoglobin 27.9 pg (27.0-33.0) Mean Corpuscular Hemoglobin Concent 34.2 g/dL (32.0-36.0) Red Cell Distribution Width 14.4 % (11.0-15.5) Platelet Count 284 K/uL (130-400) Mean Platelet Volume 8.4 fL (7.5-10.5) Immature Granulocyte % (Auto) 1.2 % (0-1) H Neutrophils (%) (Auto) 65.0 % (40.0-77.0) Lymphocytes (%) (Auto) 17.4 % (21.0-51.0) L Monocytes (%) (Auto) 14.4 % (3.0-13.0) H Eosinophils (%) (Auto) 1.7 % (0.0-8.0) Basophils (%) (Auto) 0.3 % (0.0-5.0) Neutrophils # (Auto) 4.3 K/uL (1.8-7.7) Lymphocytes # (Auto) 1.1 K/uL (1.0-4.8) Monocytes # (Auto) 0.9 K/uL (0.1-1.0) Eosinophils # (Auto) 0.11 K/uL (0.00-0.70) Basophils # (Auto) 0.02 K/uL (0.00-0.20) Absolute Immature Granulocyte (auto 0.08 K/uL (0-1) Nucleated Red Blood Cells 0.0 % (0.0-0.19) Sodium Level 124 mmol/L (136-145) L Potassium Level 3.8 mmol/L (3.5-5.1) Chloride Level 89 mmol/L (101-111) *L Carbon Dioxide Level 28 mmol/L (21-32) Blood Urea Nitrogen 7 mg/dL (7-18) Creatinine 0.6 mg/dL (0.5-1.0) Glomerular Filtration Rate Calc 90 mL/min (>90) Random Glucose 109 mg/dL (70-105) H Total Calcium 9.3 mg/dL (8.5-10.1) Labs Reviewed?: Yes MDM MDM: Differential diagnosis: Dehydration, hypochloremia, hyponatremia Rationale: Tests considered and ordered secondary to shared decision making i nclude: Previous outside records reviewed: Old ER visits. Risk of complication and/or morbidity or mortality of patient management: None Medications-Per medication reconciliation Need for hospitalization: Patient does meet criteria for hospitalization. Need for emergency major/minor surgery: No There are no social concerns with this patient. Prescription drug management Prescriptions will include symptomatic care Patient's prior external medical records from other ER visits were reviewed by me as indicated. Prior testing and results from previous visits were reviewed. Prior tests were taken into account with medical decision making and resource utilization, independent historian/historians were used to obtain complete medical history. I independently interpreted the test that were performed, results were reviewed by me and considered findings on radiology if ordered. Medical management and examination interpretation discussions were had by me with other qualified healthcare professionals as indicated for the patient's care. Patient will be admitted under the care of [facility] for ongoing management. ED Course Orders Procedure Category Date Status Time Cbc With Differential LAB 11/25/24 Complete 08:28 Basic Metabolic Panel LAB 11/25/24 Complete 08:28 Urinalysis LAB 11/25/24 Complete W/Microscopic 08:28 0.9%Nacl 1000ml (Ns PHA 11/25/24 Complete 1000ml) 09:30 Current Medications Medications (Trade) Dose Ordered Sig/Sukh Route PRN Reason Start Time Stop Time Status Last Admin Dose Admin Sodium Chloride 1,000 ml @ 0 mls/hr ONCE ONCE IV 11/25/24 09:30 11/25/24 09:31 DC Vital Signs Date Time Temp Pulse Resp B/P (MAP) Pulse Ox O2 Delivery O2 Flow Rate FiO2 11/25/24 08:29 98.2 67 16 126/76 96 Room Air* 0 21 11/25/24 08:22 98.2 126 60 126/76 96 Room Air 0 Critical Care Note Comments Critical Care Procedure Note Authorized and Performed by: me Total critical care time: Approximately 36 minutes Due to a high probability of clinically significant, life threatening deterioration, the patient required my highest level of preparedness to intervene emergently and I personally spent this critical care time directly and personally managing the patient. This critical care time included obtaining a history; examining the patient; pulse oximetry; ordering and review of studies; arranging urgent treatment with development of a management plan; evaluation of patient's response to treatment; frequent reassessment; and, discussions with other providers. This critical care time was performed to assess and manage the high probability of imminent, life-threatening deterioration that could result in multi-organ failure. It was exclusive of separately billable procedures and treating other patients and teaching time. Please see MDM section and the rest of the note for further information on p atient assessment and treatment. DX & DISP Disposition: Inpatient Decision to Admit Time: 09:36 Departure Impression: Primary Impression: Dehydration Additional Impression: Hyponatremia Condition: Stable Referrals: MICKI CHILEL DO (PCP) JESUS BIGGS MD Nov 25, 2024 09:18
[2024-11-25] MEDS: 0.9%NACL 1000ML 1,000 ML IV ONE (13:54)
--- NOTE | 2024-11-25 15:19 | NUR ---
DCP:HOME Pt currently lives alone in her home alone. Pt's dgt in law Fatoumata Isaac [phone] was at bedside. Pt does not have any DME, home health, or provider services. Pt states that she is able to complete ADLs independently. PCP is Kasey Kaplan and uses [facility] for any RX needs. At DC pt will want to go home and family can assist with transportation. Addendum: 11/25/24 at 1522 by SALENA VILLATORO SS Amended: Links added.
[2024-11-25] MEDS: 0.9%NACL 1000ML 1,000 ML IV SCH (18:28)
[2024-11-25] MEDS ORDERED: NITR100C9 PO (19:00)
[2024-11-25] MEDS ORDERED: PRED5DRO25 OD (19:00)
--- NOTE | 2024-11-25 19:00 | NUR ---
MEDICATIONS RECONCILED
--- NOTE | 2024-11-25 20:38 | NUR ---
SPOKE TO KLEVER LOBO WITH [facility]. ORDERS RECIEVED TO CONTINUE HOME MEDICATIONS ALPREZOLAM AND METROPOLOL.
[2024-11-25 20:50] LABS: CREATININE 0.5 mg/dL (0.5-1.0); GLOMERULAR FILTR. RATE CALC 94.0 mL/min (>90); GLUCOSE,RANDOM 131.0 mg/dL (70-105); SODIUM SERUM 131.0 mmol/L (136-145); UREA NITROGEN, BLOOD 5.0 mg/dL (7-18)
--- NOTE | 2024-11-25 22:11 | NUR ---
REPORT GIVEN TO PEDRO SMITH.
--- NOTE | 2024-11-25 22:14 | NUR ---
PATIENT TRANSPORTED TO [facility]
[2024-11-25 22:20] VITALS: BP 152/82; PULSE 64; RESP 20; TEMP 98.4
[2024-11-25 23:30] VITALS: O2SAT 98
[2024-11-26 03:32] VITALS: BP 134/71; PULSE 63; RESP 16; TEMP 98
[2024-11-26 06:04] LABS: ASPARTATE AMINOTRANSFERASE 15.0 U/L (10-37); CREATININE 0.5 mg/dL (0.5-1.0); GLOMERULAR FILTR. RATE CALC 94.0 mL/min (>90); GLUCOSE,RANDOM 97.0 mg/dL (70-105); SODIUM SERUM 134.0 mmol/L (136-145); TOTAL PROTEIN, SERUM 5.7 g/dL (6.0-8.3); UREA NITROGEN, BLOOD 4.0 mg/dL (7-18)
--- NOTE | 2024-11-26 06:21 | EKG ---
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
--- NOTE | 2024-11-26 06:54 | HMCIMG ---
EXAM: CR Chest, single view. CLINICAL HISTORY: Pneumonia COMPARISON: Prior chest radiograph dated 11 Sep 2024 FINDINGS: The lungs show no infiltrate or other acute findings. No pleural effusion or pneumothorax. The cardiomediastinal silhouette is within normal limits. Mild tortuosity of the descending thoracic aorta. No acute osseous abnormality. IMPRESSION: No acute cardiopulmonary pathology is evident. Compared to the prior study, there is no significant interval change. /Proctor
[2024-11-26 08:00] VITALS: BP 146/72; PULSE 62; RESP 18; TEMP 97.9
[2024-11-26] MEDS: ASPIRIN 81MG CHEW TAB PO SCH (09:14)
[2024-11-26 09:16] VITALS: O2SAT 97
[2024-11-26 12:00] VITALS: BP 139/76; PULSE 77; RESP 18; TEMP 98.1
[2024-11-26] MEDS ORDERED: PoTASSium chl 10% ELIXIR 20MEQ 20 MEQ/15 ML UDCUP PO PRN (13:00)
[2024-11-26] MEDS: PoTASSium chloRIDE 20MEQ ER 20 MEQ ERTAB PO PRN (14:49)
[2024-11-26] MEDS: PoTASSium chloRIDE 20MEQ ER 20 MEQ ERTAB PO ONE (15:56)
--- NOTE | 2024-11-26 16:06 | NUR ---
PT WAS EDUCATED ON THE IMPORTANCE IN STAYING HYDRATED. IV WAS REMOVED WITHOUT COMPLICATIONS. PT VERBALIZED UNDERSTANDING. PT VERBALIZED SHE WILL CHANGE AND RING CALL LIGHT WHEN READY TO BE TRANSPORTED.
[2024-11-26] MEDS ORDERED: BRIMONIDINE TARTRATE OP SCH (21:00)
--- NOTE | 2024-11-26 23:44 | HP ---
[facility] HISTORY & PHYSICAL Date Patient Seen: Nov 26, 2024 Time of Visit: 23:43 Supervising Physician: Dr. Montero Primary Care Physician: Dr. Kasey Kaplan Outpatient Specialists: [ ] Inpatient Consults: [ ] PROBLEM LIST: Body weakness Left lower extremity pain Hyponatremia COPD with interstitial fibrosis Anemia chronic disease Former smoker 15 years Chronic problem list: Hypertension, anxiety, acid reflex, COPD, hyperlipidemia History admission due to severe hyponatremia HPI: Patient is an 84-year-old female with a past medical history significant for Chronic obstructive pulmonary disease, interstitial fibrosis, as well as chronic admissions for hyponatremia. At the time of my evaluation patient's hyponatremia has resolved with fluid hydration. Conversation held with family regarding her drinking habits, patient with chronic hyponatremia has been advised to drink Pedialyte or Gatorade along with her water daily to replenish electrolytes. Patient currently receiving potassium supplementation orally. We will continue to monitor closely for potential discharge in the next 24 hours PAST MEDICAL HX: see above PAST SURGICAL HX: noncontributory SOCIAL HISTORY: No tobacco, ETOH, or illicit drug use Coded Allergies: Penicillins (Unverified Allergy, Unknown, 02/09/19) ciprofloxacin (Unverified Allergy, Unknown, 03/18/24) diphenhydramine (Unverified Allergy, Unknown, 02/09/19) sulfamethoxazole (Unverified Allergy, Unknown, 03/18/24) trimethoprim (Unverified Allergy, Unknown, 03/18/24) REVIEW OF SYSTEMS: 12 point ROS reviewed with patient. Pertinent positives mentioned above. Otherwise negative. PHYSICAL EXAM: GENERAL: alert, weak, awake oriented x 3 HEENT: EOMI, Sclera non icteric, moist mucosa NECK: Supple, no JVD, trachea midline LUNGS: Clear breath sounds bilaterally. No wheezes HEART: Regular rate and rhythm. Normal S1 and S2, without murmurs ABD: Abdomen soft, nontender. Bowel sounds present EXT: No clubbing cyanosis or edema NEURO: Alert and oriented to person, follows commands LABS: Hematology Labs: Test 11/25/24 08:41 Range/Units White Blood Count 6.5 4.8-10.8 K/uL Red Blood Count 4.51 4.00-5.50 MIL/uL Hemoglobin 12.6 12.0-16.0 g/dL Hematocrit 36.8 36-48 % Mean Corpuscular Volume 81.6 79-99 fL Mean Corpuscular Hemoglobin 27.9 27.0-33.0 pg Mean Corpuscular Hemoglobin Concent 34.2 32.0-36.0 g/dL Red Cell Distribution Width 14.4 11.0-15.5 % Platelet Count 284 130-400 K/uL Mean Platelet Volume 8.4 7.5-10.5 fL Immature Granulocyte % (Auto) 1.2 H 0-1 % Neutrophils (%) (Auto) 65.0 40.0-77.0 % Lymphocytes (%) (Auto) 17.4 L 21.0-51.0 % Monocytes (%) (Auto) 14.4 H 3.0-13.0 % Eosinophils (%) (Auto) 1.7 0.0-8.0 % Basophils (%) (Auto) 0.3 0.0-5.0 % Neutrophils # (Auto) 4.3 1.8-7.7 K/uL Lymphocytes # (Auto) 1.1 1.0-4.8 K/uL Monocytes # (Auto) 0.9 0.1-1.0 K/uL Eosinophils # (Auto) 0.11 0.00-0.70 K/uL Basophils # (Auto) 0.02 0.00-0.20 K/uL Absolute Immature Granulocyte (auto 0.08 0-1 K/uL Nucleated Red Blood Cells 0.0 0.0-0.19 % Chemistry Labs: Test 11/26/24 11:17 11/26/24 05:24 Range/Units Whole Blood Glucose 134 H 70-110 MG/DL Sodium Level 134 L 136-145 mmol/L Potassium Level 3.2 L 3.5-5.1 mmol/L Chloride Level 100 L 101-111 mmol/L Carbon Dioxide Level 26 21-32 mmol/L Blood Urea Nitrogen 4 L 7-18 mg/dL Creatinine 0.5 0.5-1.0 mg/dL Glomerular Filtration Rate Calc 94 >90 mL/min Random Glucose 97 70-105 mg/dL Total Calcium 8.3 L 8.5-10.1 mg/dL Total Bilirubin 0.5 0.2-1.0 mg/dL Aspartate Amino Transf (AST/SGOT) 15 10-37 U/L Alanine Aminotransferase (ALT/SGPT) 21 12-78 U/L Alkaline Phosphatase 71 50-136 U/L Total Protein 5.7 L 6.0-8.3 g/dL Albumin 2.9 L 3.5-5.0 g/dL DIAGNOSTICS / RADIOLOGY RESULTS: [ ] PLAN NEURO: Minimize central acting medications as possible. Maintain fall precautions, adequate lighting during the day PULMONARY: Supplemental 02 as needed. Maintain aspiration precautions at all times CARDIOVASCULAR: Follow hemodynamics. Vital signs per facility protocol GI & NUTRITION: Continue with nutritional support. Continue stool softeners and laxatives as needed. KIDNEYS & ELECTROLYTES: Strict monitoring of intake, output and overall fluid balance. Avoid nephrotoxic medications to the extent possible. Medications to be dosed according to renal function. Monitor electrolytes and replace as needed ENDOCRINE: Maintain blood glucose between 100-180 at all times. Hypoglycemia protocol in place INFECTIOUS DISEASE: Trend temperature, WBC and procalcitonin level Follow cultures, deescalate antibiotics as soon as possible. Panculture if new onset fever ONCOLOGY/HEMATOLOGY/COAGULATION: Monitor for s/s of bleeding Monitor hemoglobin, coagulation studies as needed SKIN: Pressure ulcer prevention per facility protocol Specialty mattress ORTHO/REHAB: Continue PT/OT Prophylaxis: Continue GI and DVT prophylaxis Code Status: Full Resuscitation Disposition: TBD Other: Total patient care time exceeds 35 minutes excluding all procedures. KLEVER CHATTERJEE Nov 26, 2024 23:44
--- NOTE | 2024-11-26 23:44 | DS ---
[facility] DISCHARGE SUMMARY Date Patient Seen: Nov 26, 2024 Time of Visit: 23:44 Supervising Physician: Dr. Montero Primary Care Physician: Dr. Kasey Kaplan Outpatient Specialists: [ ] Inpatient Consults: [ ] HOSPITAL COURSE: HPI (per admitting provider) Patient is an 84-year-old female with a past medical history significant for Chronic obstructive pulmonary disease, interstitial fibrosis, as well as chronic admissions for hyponatremia. At the time of my evaluation patient's hyponatremia has resolved with fluid hydration. Conversation held with family regarding her drinking habits, patient with chronic hyponatremia has been advised to drink Pedialyte or Gatorade along with her water daily to replenish electrolytes. Patient currently receiving potassium supplementation orally. We will continue to monitor closely for potential discharge in the next 24 hours The patient was treated for the following problems: Patient was admitted overnight for lower extremity pain as well as hyponatremia. Patient with chronic visits for hyponatremia was resuscitated with IV fluid hydration. Upon discharge patient is sodium is 143, she was advised to continue with her PCP recommendations of Pedialyte daily. Patient's lower extremity pain was resolved upon admission, no further complaints at this time. Patient was advised to follow up with her PCP this week. 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 PCP notified of patients admission, hospital course and discharge. PHYSICAL EXAM: GENERAL: alert, weak, awake oriented x 3 HEENT: EOMI, Sclera non icteric, moist mucosa NECK: Supple, no JVD, trachea midline LUNGS: Clear breath sounds bilaterally. No wheezes HEART: Regular rate and rhythm. Normal S1 and S2, without murmurs ABD: Abdomen soft, nontender. Bowel sounds present EXT: No clubbing cyanosis or edema NEURO: Alert and oriented to person, follows commands FOLLOW-UP: Follow-up with PCP in 2-3 days RECOMMENDATIONS: See Discharge Instructions This case was seen and discussed with my supervising physician. More than 30 minutes spent on discharge process, including evaluation of the patient, discussion with nursing staff, medication reconciliation and follow-up appointments KLEVER CHATTERJEE Nov 26, 2024 23:44
[2024-11-27] MEDS ORDERED: amLODIPine 5 MG TAB PO SCH (09:00)
[2024-11-27] MEDS ORDERED: EYE OD SCH (09:00)
[2024-11-27] MEDS ORDERED: PREDNISOLONE ACETATE OD SCH (09:00)
[2024-11-27] MEDS ORDERED: PoTASSium chloRIDE 10MEQ SR 10 MEQ/TAB TAB.SR.24H PO SCH (09:00)
== END 2024-11-26 16:40 | disposition home or self-care (01) ==
LOC: EDH 08:20 → EDHIP 09:35 → 4CH 22:11
PROVIDERS: ADMIT Internal Medicine; ATTEND Internal Medicine
DX: M79.662 Pain in left lower leg (principal); E87.1 Hypo-osmolality and hyponatremia; J44.9 Chronic obstructive pulmonary disease, unspecified; F41.9 Anxiety disorder, unspecified; D63.8 Anemia in other chronic diseases classified elsewhere; E78.00 Pure hypercholesterolemia, unspecified; E86.0 Dehydration; I10 Essential (primary) hypertension; Z87.891 Personal history of nicotine dependence; Z88.0 Allergy status to penicillin; Z90.49 Acquired absence of other specified parts of digestive tract; Z79.899 Other long term (current) drug therapy; Z98.890 Other specified postprocedural states
CPT/HCPCS: 96360; 80048 ×2; 85025; 81001; 36415 ×2; 71045; 99291; 93005; 80053; 82948 ×2; G0378 ×31

== ENCOUNTER 2024-12-22 06:41 | Observation (INO) | payer OTHER, MEDICARE ==
[~2024-12-22] VITALS: Ht 160 cm; Wt 67.1 kg
[~2024-12-22 06:41] MED LIST changes: -FOSF3PAC4 PO; +NITR100C9 PO; +PRED5DRO25 OD
--- NOTE | 2024-12-22 06:50 | ERN ---
General Chief Complaint: Multiple Complaints Stated Complaint: NEAR SYNCOPE, GBW Time Seen by MD: 06:48 History of Present Illness Initial Comments 84-year-old female with past medical history of COPD hypertension coronary artery disease comes in with generalized body weakness and feeling like she is going to pass out. This past week she went to her primary care physician and discovered she had a urinary tract infection and she received a shot of antibiotics in his currently taking oral antibiotics to treat the urinary tract infection. She also discovered she had severe hyponatremia and her physician asked her to cut back on the amount of water that she drinks each day, which she did. I asked her how well she is urinating and she states that she does urinate but only a little bit and it is dark in color. No changes in her medications aside from the antibiotics. She states no fevers or chills no chest pain no shortness of breath. Allergies: Coded Allergies: Penicillins (Unverified Allergy, Unknown, 02/09/19) ciprofloxacin (Unverified Allergy, Unknown, 03/18/24) diphenhydramine (Unverified Allergy, Unknown, 02/09/19) sulfamethoxazole (Unverified Allergy, Unknown, 03/18/24) trimethoprim (Unverified Allergy, Unknown, 03/18/24) Home Meds Reported Medications Prednisolone Acetate/Pf (Prednisolone Acet 1% Eye Drop) 1 % Drops.susp, 1 DROP OD DAILY for 30 Days, #5 ML 0 Refills 11/25/24 Nitrofurantoin Monohyd/M-Cryst (Nitrofurantoin [place]-Mcr 100 mg) 100 Mg Capsule, 1 CAP PO BID for 7 Days, #14 CAP 0 Refills 11/25/24 Brimonidine Tartrate (Alphagan P) 0.1 % Drops, 1 DROP OP BID for 30 Days, #5 ML 0 Refills 03/18/24 Dorzolamide HCl/Timolol Maleat (Dorzolamide-Timolol Eye Drops) 22.3 Mg-6.8 Mg/Ml Drops, 1 DROP OP BID, #10 ML 0 Refills 03/18/24 Esomeprazole Magnesium (Esomeprazole Magnesium) 40 Mg Capsule.dr, 1 CAP PO DAILY for 30 Days, #30 CAP 0 Refills 03/18/24 Alprazolam (Alprazolam) 0.25 Mg Tablet, 0.25 MG PO TID, TAB 03/18/24 Aspirin (ASPIRIN 81MG CHEW TAB) 81 Mg Tab.chew, 1 TAB PO DAILY for 30 Days, #30 TAB 0 Refills 01/26/24 Atorvastatin Calcium (LIPITOR) 20 Mg Tab, 1 TAB PO DAILY for 30 Days, #30 TAB 0 Refills 01/25/24 Olmesartan Medoxomil (Olmesartan Medoxomil) 40 Mg Tablet, 1 TAB PO DAILY for 30 Days, #30 TAB 0 Refills 01/25/24 Amlodipine Besylate (Amlodipine Besylate) 10 Mg Tablet, 1 TAB PO DAILY for 30 Days, #30 TAB 0 Refills 01/25/24 Potassium Chloride (Potassium Chloride) 10 Meq Tab.er.prt, 1 TAB PO DAILY for 30 Days, #30 TAB 0 Refills 01/25/24 Metoprolol Succinate (Metoprolol Succinate) 50 Mg Tab.er.24h, 1 TAB PO BID for 30 Days, #30 TAB 0 Refills 01/25/24 Past Medical History Past Medical History: COPD, Depression, High Cholesterol, Heart Disease, Hypertension, UTI Past Surgical History: Appendectomy, Other, Surgical History Other: LT EYE SX Family History Family History: Negative Social History Social History: Negative Female( History) History: Not Applicable Constitutional: (-) chills, (-) diaphoresis, (-) fever, (-) malaise, (-) weakness, (-) other documentation EENTM: (-) eye pain, (-) blurred vision, (-) tearing, (-) double vision, (-) ear pain, (-) ear discharge, (-) nose pain, (-) nose congestion, (-) throat pain, (-) Throat swelling, (-) mouth pain, (-) tooth pain, (-) mouth swelling, (-) other documentation Respiratory: (-) cough, (-) orthopnea, (-) short of breath, (-) stridor, (-) wheezing, (-) other documentation Cardiovascular: (-) chest pain, (-) edema, (-) palpitations, (-) syncope, (-) dyspnea on exertion, (-) other documentation Gastrointestinal/Abdominal: (-) nausea, (-) vomiting, (-) diarrhea, (-) abdominal pain, (-) abdominal distention, (-) constipation, (-) rectal bleeding, (-) dark stool/melena, (-) other documentation Genitourinary: (-) vaginal discharge, (-) vaginal bleeding, (-) dysuria, (-) frequency, (-) hematuria, (-) pain, (-) other documentation Physical Exam General Appearance: (+) no apparent distress Orientation: (+) alert Head/Face Trauma: No Eye: bilateral eye normal inspection, bilateral eye PERRL, bilateral eye EOMI Ear, Nose, Throat: (+) hearing grossly normal, (+) normal ENT inspection, (+) moist mucous membraine Neck: (+) normal inspection, (+) supple Respiratory: (+) chest non-tender, (+) lungs clear, (+) well ventilated Heart: (+) regular, (+) no gallop Vascular: (+) no edema, (+) normal peripheral pulse Gastrointestinal: (+) soft, (+) non-tender, (+) bowel sound present Skin Comment Extreme skin tenting bilateral hands Results Laboratory and Microbiology Lab and Micro Result Laboratory Tests Test 12/22/24 07:03 12/22/24 08:13 White Blood Count 7.4 K/uL (4.8-10.8) Red Blood Count 4.35 MIL/uL (4.00-5.50) Hemoglobin 12.0 g/dL (12.0-16.0) Hematocrit 35.8 % (36-48) L Mean Corpuscular Volume 82.3 fL (79-99) Mean Corpuscular Hemoglobin 27.6 pg (27.0-33.0) Mean Corpuscular Hemoglobin Concent 33.5 g/dL (32.0-36.0) Red Cell Distribution Width 14.6 % (11.0-15.5) Platelet Count 245 K/uL (130-400) Mean Platelet Volume 8.0 fL (7.5-10.5) Immature Granulocyte % (Auto) 1.0 % (0-1) Neutrophils (%) (Auto) 85.8 % (40.0-77.0) H Lymphocytes (%) (Auto) 4.6 % (21.0-51.0) L Monocytes (%) (Auto) 6.0 % (3.0-13.0) Eosinophils (%) (Auto) 2.2 % (0.0-8.0) Basophils (%) (Auto) 0.4 % (0.0-5.0) Neutrophils # (Auto) 6.3 K/uL (1.8-7.7) Lymphocytes # (Auto) 0.3 K/uL (1.0-4.8) L Monocytes # (Auto) 0.4 K/uL (0.1-1.0) Eosinophils # (Auto) 0.16 K/uL (0.00-0.70) Basophils # (Auto) 0.03 K/uL (0.00-0.20) Absolute Immature Granulocyte (auto 0.07 K/uL (0-1) Nucleated Red Blood Cells 0.0 % (0.0-0.19) White Cell Morphology Comment See comments Sodium Level 127 mmol/L (136-145) L Potassium Level 3.3 mmol/L (3.5-5.1) L Chloride Level 93 mmol/L (101-111) L Carbon Dioxide Level 27 mmol/L (21-32) Blood Urea Nitrogen 5 mg/dL (7-18) L Creatinine 0.8 mg/dL (0.5-1.0) Glomerular Filtration Rate Calc 74 mL/min (>90) Random Glucose 114 mg/dL (70-105) H Total Calcium 9.1 mg/dL (8.5-10.1) Urine Color COLORLESS (YELLOW) Urine Appearance CLEAR (CLEAR) Urine pH 7.0 (5.0-8.0) Urine Specific [place] 1.004 (1.001-1.031) Urine Protein NEGATIVE mg/dL (NEGATIVE) Urine Glucose (UA) NEGATIVE mg/dL (NEGATIVE) Urine Ketones NEGATIVE mg/dL (NEGATIVE) Urine Occult Blood NEGATIVE (NEGATIVE) Urine Nitrate NEGATIVE (NEGATIVE) Urine Bilirubin NEGATIVE mg/dL (NEGATIVE) Urine Urobilinogen 0.2 mg/dL (0.2-1.0) Urine Leukocyte Esterase NEGATIVE Kelly/uL Labs Reviewed?: Yes EKG/XRAY/US/CT/MRI EKG Comment 12/22/2024 time 7:41 a.m. Ventricular rate 60 Sinus rhythm [place] [address] wave elevation or depression MDM MDM: Differential diagnosis: Hypovolemia, worsening hyponatremia, antibiotic failure of UTI treatment, cardiac failure Rationale: Tests considered and ordered secondary to shared decision making include: Previous outside records reviewed: Old ER visits. Risk of complication and/or morbidity or mortality of patient management: None Medications-Per medication reconciliation Need for hospitalization: Patient does meet criteria for hospitalization. Need for emergency major/minor surgery: No There are no social concerns with this patient. Prescription drug management Prescriptions will include symptomatic care Patient's prior external medical records from other ER visits were reviewed by me as indicated. Prior testing and results from previous visits were reviewed. Prior tests were taken into account with medical decision making and resource utilization, independent historian/historians were used to obtain complete medical history. I independently interpreted the test that were performed, results were reviewed by me and considered findings on radiology if ordered. Patient will be admitted under the care of [facility] for ongoing management. ED Course Orders Procedure Category Date Status Time 12 Lead Ekg Tracing- EKG 12/22/24 Logged Technical 07:02 Basic Metabolic Panel LAB 12/22/24 Complete 07:02 Cbc With Differential LAB 12/22/24 Complete 07:02 Urinalysis Profile LAB 12/22/24 Complete 07:02 0.9%Nacl 1000ml (Ns PHA 12/22/24 Complete 1000ml) 07:02 Troponin I High LAB 12/22/24 Logged Sensitivity 09:08 Creatine Kinase, Total LAB 12/22/24 Logged 09:08 Potassium Bicarb/Cit PHA 12/22/24 In Process Ac 25meq (K-Lyte Ta 09:30 Current Medications Medications (Trade) Dose Ordered Sig/Sukh Route PRN Reason Start Time Stop Time Status Last Admin Dose Admin Potassium Bicarbonate (K-Lyte Tablet Eff 25 Meq Tablet.eff) 50 meq ONCE ONCE PO 12/22/24 09:30 12/22/24 09:31 Sodium Chloride 1,000 ml @ 0 mls/hr ONCE STAT IV 12/22/24 07:02 12/22/24 07:05 DC 12/22/24 07:56 Vital Signs Date Time Temp Pulse Resp B/P (MAP) Pulse Ox O2 Delivery O2 Flow Rate FiO2 12/22/24 06:45 98.4 69 18 126/72 96 Room Air 0 DX & DISP Disposition: Inpatient Decision to Admit Time: 09:16 Departure Impression: Primary Impression: Hyponatremia Additional Impressions: Syncope and collapse, Dehydration Condition: Stable Referrals: MICKI CHILEL DO (PCP) BERT RYAN MD Dec 22, 2024 06:50 JESUS BIGGS MD Dec 22, 2024 09:16
[2024-12-22 07:10] LABS: IMMATURE GRANULOCYTE ABSOLUTE 0.07 K/uL (0-1); NUCLEATED RED BLOOD CELLS 0.0 % (0.0-0.19); PLATELET COUNT (AUTO) 245 K/uL (130-400); RED BLOOD CELL COUNT(AUTO) 4.35 MIL/uL (4.00-5.50); RED CELL DISTRIBUTION WIDTH 14.6 % (11.0-15.5); WHITE BLOOD COUNT (AUTO) 7.4 K/uL (4.8-10.8)
[2024-12-22 07:17] LABS: CREATININE 0.8 mg/dL (0.5-1.0); GLOMERULAR FILTR. RATE CALC 74.0 mL/min (>90); GLUCOSE,RANDOM 114.0 mg/dL (70-105); SODIUM SERUM 127.0 mmol/L (136-145); UREA NITROGEN, BLOOD 5.0 mg/dL (7-18)
[2024-12-22] MEDS: 0.9%NACL 1000ML 1,000 ML IV STA (07:56)
[2024-12-22 08:53] LABS: APPEARANCE,URINE CLEAR (CLEAR); GLUCOSE, URINE (UA) NEGATIVE (NEGATIVE); LEUKOCYTE ESTERASE ,URINE NEGATIVE Leu/uL (NEGATIVE); NITRATE,URINE NEGATIVE (NEGATIVE); OCCULT BLOOD,URINE NEGATIVE (NEGATIVE)
[2024-12-22 08:55] LABS: ADD UA MICROSCOPIC NO
[2024-12-22 11:46] LABS: CREATININE 0.7 mg/dL (0.5-1.0); GLOMERULAR FILTR. RATE CALC 86.0 mL/min (>90); GLUCOSE,RANDOM 172.0 mg/dL (70-105); SODIUM SERUM 134.0 mmol/L (136-145); UREA NITROGEN, BLOOD 5.0 mg/dL (7-18)
--- NOTE | 2024-12-22 12:49 | EKG ---
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
--- NOTE | 2024-12-22 15:13 | CONS ---
[facility] CARDIOLOGY CONSULTATION NOTE Date Patient Seen: Dec 22, 2024 Time of Visit: 14:45 Reason for Consultation: Syncope ] History of Present Illness: [ 84-year-old Latin-Mac[place] female that follows up in Cardiology Clinic with zuleima Dimas, with a history of multidrug-resistant hypertension, hyperlipidemia, prediabetes, chronic hypokalemia (on HCTZ in the past) on chronic potassium mcguire pplements, COPD, who presents to the emergency department endorsing generalized body weakness and feeling like she is going faint. Of note patient was recent diagnosed with a urinary tract infection per primary care physician insert she had antibiotics intramuscularly in currently taking oral antibiotics. At that time she was also found with hyponatremia. She denies any chest pain, palpitations, dyspnea or any other anginal equivalents, presenting ECG sinus rhythm , LAFB with no acute ischemia , lab results WBCs 7.4, hemoglobin 12.0, sodium 134, potassium 4.3, creatinine 0.7, troponin eight, TSH 0.63. She has a prior 2D echocardiogram from 03/18/2024, LVEF 60-65% with grade diastolic dysfunction mild aortic regurgitation. The patient was assessed at her bedside , she denies any LOC during her episodes , or any other accompanying symptoms like dizziness , chest pain , dyspnea.Review of current telemetry shows sinus rhythm in the 60s A repeat 2D echocardiogram has been ordered and pending results. Cardiology was consulted for pre -syncope ] Past Medical History: [Refer to chart ] Past Surgical History: [To HPI ] Family History: [Refer to HPI ] Social History: [Refer to HPI ] Habits: [Never] smoker. [Denies] alcohol consumption. [Denies] illicit drug use Review of Systems: A review of12 point system was negative set per HPI Physical Examination: GENERAL: [No acute distress.] HEAD: [Normal with no signs of head trauma.] EYES: [PERRLA, EOMI, conjunctiva and sclera normal.] ENT: [Hearing grossly intact, normal oropharynx.] NECK: [Supple without JVD. There is no tenderness, lymphadenopathy, or masses. No thyromegaly. Normal carotid upstrokes without bruits.] LUNGS: [Clear breath sounds bilaterally. No wheezes, or rhonchi.] HEART: [Normal rate and rhythm. Normal S1 and S2 without mumurs, gallop or rub.] VASC: [Peripheral pulses +2 bilaterally.] ABD: [Bowel sounds normal, soft, nontender, no masses, no organomegaly. No audible bruits.] : [Not examined] LYMPH: [No lymphadenopathy noted.] EXT: [No clubbing, cyanosis or edema.] SKIN: [No rashes or lesions noted.] NEURO: [Awake, alert, and oriented x3. No focal sensory or strength deficits noted.] Vital Signs (last 8hr) Date Time Temp Pulse Resp B/P (MAP) Pulse Ox O2 Delivery O2 Flow Rate FiO2 12/22/24 09:40 97.9 72 22 120/67 96 Room Air* 0 21 12/22/24 07:45 97.7 63 16 169/70 97 Room Air* 0 21 Laboratory: [ ] Hematology Labs: Test 12/22/24 07:03 Range/Units White Blood Count 7.4 4.8-10.8 K/uL Red Blood Count 4.35 4.00-5.50 MIL/uL Hemoglobin 12.0 12.0-16.0 g/dL Hematocrit 35.8 L 36-48 % Mean Corpuscular Volume 82.3 79-99 fL Mean Corpuscular Hemoglobin 27.6 27.0-33.0 pg Mean Corpuscular Hemoglobin Concent 33.5 32.0-36.0 g/dL Red Cell Distribution Width 14.6 11.0-15.5 % Platelet Count 245 130-400 K/uL Mean Platelet Volume 8.0 7.5-10.5 fL Immature Granulocyte % (Auto) 1.0 0-1 % Neutrophils (%) (Auto) 85.8 H 40.0-77.0 % Lymphocytes (%) (Auto) 4.6 L 21.0-51.0 % Monocytes (%) (Auto) 6.0 3.0-13.0 % Eosinophils (%) (Auto) 2.2 0.0-8.0 % Basophils (%) (Auto) 0.4 0.0-5.0 % Neutrophils # (Auto) 6.3 1.8-7.7 K/uL Lymphocytes # (Auto) 0.3 L 1.0-4.8 K/uL Monocytes # (Auto) 0.4 0.1-1.0 K/uL Eosinophils # (Auto) 0.16 0.00-0.70 K/uL Basophils # (Auto) 0.03 0.00-0.20 K/uL Absolute Immature Granulocyte (auto 0.07 0-1 K/uL Nucleated Red Blood Cells 0.0 0.0-0.19 % White Cell Morphology Comment See comments Chemistry Labs: Test 12/22/24 11:11 12/22/24 08:22 Range/Units Sodium Level 134 L 136-145 mmol/L Potassium Level 4.3 3.5-5.1 mmol/L Chloride Level 100 L 101-111 mmol/L Carbon Dioxide Level 28 21-32 mmol/L Blood Urea Nitrogen 5 L 7-18 mg/dL Creatinine 0.7 0.5-1.0 mg/dL Glomerular Filtration Rate Calc 86 >90 mL/min Random Glucose 172 #H 70-105 mg/dL Total Calcium 9.0 8.5-10.1 mg/dL Thyroid Stimulating Hormone (TSH) 0.56 0.36-3.74 uIU/mL Total Creatine Kinase 26 # 21-232 U/L Troponin I High Sensitivity 8 4-50 ng/L Procalcitonin 0.07 0.05-0.5 ng/mL Diagnostics / Radiology: [Copy/Paste Echos/Imaging Report here] Assessment: [COPD Multidrug resistant hypertension Hyperlipidemia Prediabetes Chronic hypokalemia ] Plan: [#Pre- syncope She presents to the emergency department endorsing generalized body weakness and feeling like she is going faint Patient denies any accompanying symptoms like chest pain, palpitations, dyspnea or any other anginal equivalents Recent UTI diagnosis currently taking oral antibiotics ] Presenting ECG sinus rhythm , LAFB with no acute ischemia, troponin negative She has a prior 2D echocardiogram from 03/18/2024, LVEF 60-65% with grade diastolic dysfunction mild aortic regurgitation WBCs 7.4, hemoglobin 12.0, sodium 134, potassium 4.3, creatinine 0.7, troponin eight, TSH 0.63 Keep on telemetry, monitor/replace electrolytes as needed ( Mg >2 , K > 4 ) Check orthostatics every 12 hrs , if positive , administer 500 ml of N/S IV x 1 We will order a 2Decho to assess systolic and valvular function We will plan for an outpatient event monitor prior to discharge Thank you For this consult cardiology will continue to follow Pio Mcgregor MD ATTESTATION BY PHYSICIAN I have seen and examined the patient, reviewed the above documentation, participated in medical decision making, made necessary modifications, and agree with the treatment plan as documented by my mid-level provider above. MD LIZETT Yeager JAMES R MD Dec 22, 2024 15:13
--- NOTE | 2024-12-22 15:48 | HP ---
[facility] HISTORY & PHYSICAL Date Patient Seen: Dec 22, 2024 Time of Visit: 15:42 Supervising Physician: Dr Hess Primary Care Physician: [ ] Outpatient Specialists: [ ] Inpatient Consults: [ ] PROBLEM LIST: Body weakness Hyponatremia COPD with interstitial fibrosis Anemia chronic disease Former smoker 15 years Chronic problem list: Hypertension, anxiety, acid reflex, COPD, hyperlipidemia History admission due to severe hyponatremia ] HPI: Patient is an 84-year-old female with a past medical history significant for Chronic obstructive pulmonary disease, interstitial fibrosis, as well as chronic admissions for hyponatremia. Patient presenting for generalized weakness and several near falls. She had a similar admission back early November. Patient stating that her family physician has been recommending she drink less fluids. She states that she has been drinking more because she recently had a urinary tract infection. Patient denies any chest pain or shortness of breath no nausea or vomiting. No diarrhea. She states feeling weak often and has resulted in several near falls but denies actually falling to the ground. No head contusion. Patient states she feels lightheaded at times but currently not dizzy. No headache or blurring vision. Patient was found to have a sodium of 127, her chest x-ray was clear and she was on room air. Afebrile. TSH, a.m. cortisol, urine osmolality are pending. She has a recurrent recent echo from 04/09 revealing 60 65%, and ultrasounds of carotids from . Cardiology consulted. Patient to be admitted for observation. She will receive fluids. Follow patient's sodium levels. BNP q.6 hours Confirmed full code status PAST MEDICAL HX: see above PAST SURGICAL HX: noncontributory SOCIAL HISTORY: No tobacco, ETOH, or illicit drug use Coded Allergies: Penicillins (Unverified Allergy, Unknown, 02/09/19) ciprofloxacin (Unverified Allergy, Unknown, 03/18/24) diphenhydramine (Unverified Allergy, Unknown, 02/09/19) sulfamethoxazole (Unverified Allergy, Unknown, 03/18/24) trimethoprim (Unverified Allergy, Unknown, 03/18/24) REVIEW OF SYSTEMS: 12 point ROS reviewed with patient. Pertinent positives mentioned above. Otherwise negative. PHYSICAL EXAM: GENERAL: alert, weak, awake oriented x 3 HEENT: EOMI, Sclera non icteric, moist mucosa NECK: Supple, no JVD, trachea midline LUNGS: Clear breath sounds bilaterally. No wheezes HEART: Regular rate and rhythm. Normal S1 and S2, without murmurs ABD: Abdomen soft, nontender. Bowel sounds present EXT: No clubbing cyanosis or edema NEURO: Alert and oriented to person, follows commands Vital Signs (last 8hr) Date Time Temp Pulse Resp B/P (MAP) Pulse Ox O2 Delivery O2 Flow Rate FiO2 12/22/24 09:40 97.9 72 22 120/67 96 Room Air* 0 21 12/22/24 07:45 97.7 63 16 169/70 97 Room Air* 0 21 LABS: Hematology Labs: Test 12/22/24 07:03 Range/Units White Blood Count 7.4 4.8-10.8 K/uL Red Blood Count 4.35 4.00-5.50 MIL/uL Hemoglobin 12.0 12.0-16.0 g/dL Hematocrit 35.8 L 36-48 % Mean Corpuscular Volume 82.3 79-99 fL Mean Corpuscular Hemoglobin 27.6 27.0-33.0 pg Mean Corpuscular Hemoglobin Concent 33.5 32.0-36.0 g/dL Red Cell Distribution Width 14.6 11.0-15.5 % Platelet Count 245 130-400 K/uL Mean Platelet Volume 8.0 7.5-10.5 fL Immature Granulocyte % (Auto) 1.0 0-1 % Neutrophils (%) (Auto) 85.8 H 40.0-77.0 % Lymphocytes (%) (Auto) 4.6 L 21.0-51.0 % Monocytes (%) (Auto) 6.0 3.0-13.0 % Eosinophils (%) (Auto) 2.2 0.0-8.0 % Basophils (%) (Auto) 0.4 0.0-5.0 % Neutrophils # (Auto) 6.3 1.8-7.7 K/uL Lymphocytes # (Auto) 0.3 L 1.0-4.8 K/uL Monocytes # (Auto) 0.4 0.1-1.0 K/uL Eosinophils # (Auto) 0.16 0.00-0.70 K/uL Basophils # (Auto) 0.03 0.00-0.20 K/uL Absolute Immature Granulocyte (auto 0.07 0-1 K/uL Nucleated Red Blood Cells 0.0 0.0-0.19 % White Cell Morphology Comment See comments Chemistry Labs: Test 12/22/24 11:11 12/22/24 08:22 Range/Units Sodium Level 134 L 136-145 mmol/L Potassium Level 4.3 3.5-5.1 mmol/L Chloride Level 100 L 101-111 mmol/L Carbon Dioxide Level 28 21-32 mmol/L Blood Urea Nitrogen 5 L 7-18 mg/dL Creatinine 0.7 0.5-1.0 mg/dL Glomerular Filtration Rate Calc 86 >90 mL/min Random Glucose 172 #H 70-105 mg/dL Total Calcium 9.0 8.5-10.1 mg/dL Thyroid Stimulating Hormone (TSH) 0.56 0.36-3.74 uIU/mL Total Creatine Kinase 26 # 21-232 U/L Troponin I High Sensitivity 8 4-50 ng/L Procalcitonin 0.07 0.05-0.5 ng/mL DIAGNOSTICS / RADIOLOGY RESULTS: [ ] PLAN Follow pending labs, fluids, monitor sodium Follow cardiology recs Telemetry NEURO: Minimize central acting medications as possible. Maintain fall precautions, adequate lighting during the day PULMONARY: Supplemental 02 as needed. Maintain aspiration precautions at all times CARDIOVASCULAR: Follow hemodynamics. Vital signs per facility protocol GI & NUTRITION: Continue with nutritional support. Continue stool softeners and laxatives as needed. KIDNEYS & ELECTROLYTES: Strict monitoring of intake, output and overall fluid balance. Avoid nephrotoxic medications to the extent possible. Medications to be dosed according to renal function. Monitor electrolytes and replace as needed ENDOCRINE: Maintain blood glucose between 100-180 at all times. Hypoglycemia protocol in place INFECTIOUS DISEASE: Trend temperature, WBC and procalcitonin level Follow cultures, deescalate antibiotics as soon as possible. Panculture if new onset fever ONCOLOGY/HEMATOLOGY/COAGULATION: Monitor for s/s of bleeding Monitor hemoglobin, coagulation studies as needed SKIN: Pressure ulcer prevention per facility protocol Specialty mattress ORTHO/REHAB: Continue PT/OT Prophylaxis: Continue GI and DVT prophylaxis Code Status: Full Resuscitation Disposition: TBD Other: Total patient care time exceeds 35 minutes excluding all procedures. SIMONE HAILE Dec 22, 2024 15:48
--- NOTE | 2024-12-22 17:28 | HMCSR ---
APPROVED REPORT EXAM: Two-dimensional and M-mode echocardiogram with Doppler and color Doppler. INDICATION ICD: cardiomyopathy Syncope 2D Dimensions RVDd3.5 cmLVEF(%)63.0 (>50%)LVED Vol(simp.)60.7 mL IVSd0.7 (0.7-1.1cm)FS(%)35 %LVES Vol(simp.)24.6 mL LVDd5.6 (3.8-5.6cm)LA (2D)4.0 (1.6-4.0cm)LVEF(%, simp.)59 % PWd0.7 (0.7-1.1cm)Ao Root(2D)3.3 (2.0-3.7cm)LA ESV INDEX (BP)26.68 mL/m2 LVDs3.7 (2.5-4.0cm)LVOT diam1.7 (1.8-2.4cm) IVC diam1.7 cm Deformation Strain Apical 4-22.8 % Apical 2-17.5 % Apical 3-21.4 % Global Strain-20.6 % M-Mode Dimensions EPSS0.6 cm LA (MM)4.2 (1.6-4.0cm) Ao Root(MM)3.4 (2.0-3.7cm) Aortic Valve AoV Vmax1.4 m/Eliza Peak GR7.4 mmHgLVOT Vmax1.1 m/s AoV VTI0.3 mAo Mean GR4.4 mmHgLVOT VTI0.25 m SERENA (VMAX)2.00 cm2Al P1/2T582 msAVA (VTI) 1.9 cm2 Mitral Valve MV E Vmax59.0 cm/sDECEL Wcnv644 ms MV A Zaps114.9 cm/sP 1/2 T101 ms E/A ratio0.6MVA (PHT)2.2 cm2 TDI E/E' Ysnftk36.8E/E' Lateral8.3 Medial E' Peak V4.61 cm/sLateral E' Peak V7.07 cm/s Pulmonary Valve PV Vmax0.9 m/sPV VTI0.18 mPV Mean GR2.0 mmHg PV Peak GR3.5 mmHg Tricuspid Valve TR Vmax2.3 m/sRVSP19.4 mmHg TR Peak GR20.5 mmHg Left Ventricle The left ventricle is normal size. There is normal left ventricular wall thickness. LVEF is 55-60%. T he left ventricular diastolic function is normal. Right Ventricle The right ventricle is normal size. The right ventricular systolic function is normal. Atria The left atrium size is normal. The right atrium size is normal. Aortic Valve The aortic valve is normal in structure. Mild aortic regurgitation. There is no aortic valvular steno sis. Mitral Valve The mitral valve is normal in structure. Mitral regurgitation is trace to mild. There is no mitral va lve stenosis. Tricuspid Valve The tricuspid valve is normal in structure. There is trace tricuspid valve regurgitation noted. Pulmonic Valve The pulmonary valve is normal in structure. There is no pulmonic valvular regurgitation. Great Vessels The aortic root is normal in size. The IVC is normal in size and collapses >50% with inspiration. Pericardium There is no pericardial effusion. Conclusion The left ventricle is normal size. LVEF is 55-60%. The left ventricular diastolic function is normal. The right ventricle is normal size. The right ventricular systolic function is normal. The left atrium size is normal. The right atrium size is normal. Mild aortic regurgitation. Mitral regurgitation is trace to mild. There is no pericardial effusion.
[2024-12-22] MEDS: 0.9%NACL 1000ML 1,000 ML IV SCH (18:07)
[2024-12-22 18:18] LABS: CREATININE 0.5 mg/dL (0.5-1.0); GLOMERULAR FILTR. RATE CALC 94.0 mL/min (>90); GLUCOSE,RANDOM 110.0 mg/dL (70-105); SODIUM SERUM 132.0 mmol/L (136-145); UREA NITROGEN, BLOOD 6.0 mg/dL (7-18)
[2024-12-22 19:00] VITALS: BP 119/68; PULSE 64; RESP 15; TEMP 98.6
[2024-12-22 20:00] VITALS: O2SAT 95
[2024-12-22] MEDS: BRIMONIDINE TARTRATE 0.2% 5 ML BOTTLE OP SCH (20:34)
[2024-12-22] MEDS: DORZOLAMIDE HCL/TIMOLOL MALEAT DROPS 10 ML BOTTLE OD SCH (20:35)
[2024-12-22 21:02] LABS: CREATININE 0.6 mg/dL (0.5-1.0); GLOMERULAR FILTR. RATE CALC 90.0 mL/min (>90); GLUCOSE,RANDOM 143.0 mg/dL (70-105); SODIUM SERUM 132.0 mmol/L (136-145); UREA NITROGEN, BLOOD 6.0 mg/dL (7-18)
[2024-12-22 21:07] LABS: ASPARTATE AMINOTRANSFERASE 17.0 U/L (10-37); TOTAL PROTEIN, SERUM 5.9 g/dL (6.0-8.3)
[2024-12-23] VITALS: BP 123/65; PULSE 63; RESP 12; TEMP 98.7
--- NOTE | 2024-12-23 | NUR ---
PTS BP MED WAS HELD DUE TO XANEX ADMINISTRATION AND HISTORY OF LOW BP AND SYNCOPE, BP HAS BEEN NORMAL AND NOT INCREASED
[2024-12-23 00:20] LABS: CREATININE 0.5 mg/dL (0.5-1.0); GLOMERULAR FILTR. RATE CALC 94.0 mL/min (>90); GLUCOSE,RANDOM 101.0 mg/dL (70-105); SODIUM SERUM 133.0 mmol/L (136-145); UREA NITROGEN, BLOOD 5.0 mg/dL (7-18)
--- NOTE | 2024-12-23 05:06 | HMCIMG ---
EXAM: CR Chest, 1 view. CLINICAL HISTORY: Pneumonia. COMPARISON: CR Chest. FINDINGS: The lungs show no infiltration or other acute findings. No pleural effusion or pneumothorax. The cardio mediastinal silhouette is within normal limits. No acute osseous abnormality. IMPRESSION: 1. No acute cardiopulmonary pathology is evident. Stable since the prior. /[place]
[2024-12-23 05:31] VITALS: BP 127/65; PULSE 73; RESP 13; TEMP 98.6
[2024-12-23 09:18] LABS: ASPARTATE AMINOTRANSFERASE 20.0 U/L (10-37); CREATININE 0.5 mg/dL (0.5-1.0); GLOMERULAR FILTR. RATE CALC 94.0 mL/min (>90); GLUCOSE,RANDOM 105.0 mg/dL (70-105); SODIUM SERUM 134.0 mmol/L (136-145); TOTAL PROTEIN, SERUM 6.0 g/dL (6.0-8.3); UREA NITROGEN, BLOOD 6.0 mg/dL (7-18)
[2024-12-23] MEDS: SODIUM CHLORIDE 1,000 MG TAB PO SCH (09:39)
[2024-12-23] MEDS: ASPIRIN 81MG CHEW TAB PO SCH (09:39)
[2024-12-23] MEDS: ENOXAPARIN SODIUM 30 MG/0.3 ML SQ SCH (09:40)
[2024-12-23] MEDS: amLODIPine 5 MG TAB PO SCH (09:40)
--- NOTE | 2024-12-23 10:10 | NUR ---
CARDIO DR RAE AT BEDSIDE
[2024-12-23] MEDS ORDERED: NACL1 PO (10:29)
--- NOTE | 2024-12-23 10:31 | PN ---
[facility] CARDIOLOGY PROGRESS NOTE Date Patient Seen: Dec 23, 2024 Time of Visit: 10:24 Interval History: 84-year-old Latin-Vietnamese female, patient of mine at the [facility], with a history of multidrug-resistant hypertension, hyperlipidemia, prediabetes, recurrent hyponatremia, chronic hypokalemia (on HCTZ in the past) on chronic potassium supplements, COPD, who presents to the emergency department endorsing generalized body weakness and feeling like she is going faint. Of note patient was recent diagnosed with a urinary tract infection per primary care physician insert she had antibiotics intramuscularly in currently taking oral antibiotics. She has been found to have recurrent hyponatremia in the 124-127 range, was advised to decrease water intake, and is scheduled to see an energy conservation engineer this Monday12/25/2024. The patient denies palpitations, chest pain, and her EKG on admission demonstrated sinus rhythm, LAFB with no acute ischemia, normal troponin of 8, WBCs 7.4, hemoglobin 12.0, sodium 127, potassium 4.3, creatinine 0.7, TSH 0.63. She has a prior 2D echocardiogram from 03/18/2024, LVEF 60-65% with grade diastolic dysfunction mild aortic regurgitation. A 2D echocardiogram 12/22/2024 demonstrated an LVEF of 55-60%, normal diastolic function, mild aortic regurgitation, and trace to mild mitral regurgitation. Physical Examination: GENERAL: No acute distress. HEAD: Normal with no signs of head trauma. EYES: PERRLA, EOMI, conjunctiva and sclera normal. NECK: Supple without JVD. There is no tenderness, lymphadenopathy, or masses. No thyromegaly. Normal carotid upstrokes without bruits. LUNGS: Clear breath sounds bilaterally. No wheezes, or rhonchi. HEART: Normal rate and rhythm. Normal S1 and S2 without murmurs, gallop or rub. VASC: Peripheral pulses +2 bilaterally. EXT: No clubbing, cyanosis or edema. NEURO: Awake, alert, and oriented x3. No focal neurological deficits noted. Laboratory: Hematology Labs: Test 12/22/24 07:03 Range/Units White Blood Count 7.4 4.8-10.8 K/uL Red Blood Count 4.35 4.00-5.50 MIL/uL Hemoglobin 12.0 12.0-16.0 g/dL Hematocrit 35.8 L 36-48 % Mean Corpuscular Volume 82.3 79-99 fL Mean Corpuscular Hemoglobin 27.6 27.0-33.0 pg Mean Corpuscular Hemoglobin Concent 33.5 32.0-36.0 g/dL Red Cell Distribution Width 14.6 11.0-15.5 % Platelet Count 245 130-400 K/uL Mean Platelet Volume 8.0 7.5-10.5 fL Immature Granulocyte % (Auto) 1.0 0-1 % Neutrophils (%) (Auto) 85.8 H 40.0-77.0 % Lymphocytes (%) (Auto) 4.6 L 21.0-51.0 % Monocytes (%) (Auto) 6.0 3.0-13.0 % Eosinophils (%) (Auto) 2.2 0.0-8.0 % Basophils (%) (Auto) 0.4 0.0-5.0 % Neutrophils # (Auto) 6.3 1.8-7.7 K/uL Lymphocytes # (Auto) 0.3 L 1.0-4.8 K/uL Monocytes # (Auto) 0.4 0.1-1.0 K/uL Eosinophils # (Auto) 0.16 0.00-0.70 K/uL Basophils # (Auto) 0.03 0.00-0.20 K/uL Absolute Immature Granulocyte (auto 0.07 0-1 K/uL Nucleated Red Blood Cells 0.0 0.0-0.19 % White Cell Morphology Comment See comments Chemistry Labs: Test 12/23/24 08:38 12/22/24 20:34 12/22/24 11:11 12/22/24 08:22 Range/Units Sodium Level 134 L 136-145 mmol/L Potassium Level 3.0 *L 3.5-5.1 mmol/L Chloride Level 99 L 101-111 mmol/L Carbon Dioxide Level 26 21-32 mmol/L Blood Urea Nitrogen 6 L 7-18 mg/dL Creatinine 0.5 0.5-1.0 mg/dL Glomerular Filtration Rate Calc 94 >90 mL/min Random Glucose 105 70-105 mg/dL Total Calcium 8.7 8.5-10.1 mg/dL Total Bilirubin 0.4 # 0.2-1.0 mg/dL Aspartate Amino Transf (AST/SGOT) 20 10-37 U/L Alanine Aminotransferase (ALT/SGPT) 24 12-78 U/L Alkaline Phosphatase 75 50-136 U/L B-Type Natriuretic Peptide 165 H 0-100 pg/mL Total Protein 6.0 6.0-8.3 g/dL Albumin 2.9 L 3.5-5.0 g/dL Magnesium Level 1.80 1.80-2.40 mg/dL Thyroid Stimulating Hormone (TSH) 0.56 0.36-3.74 uIU/mL Total Creatine Kinase 26 # 21-232 U/L Troponin I High Sensitivity 8 4-50 ng/L Procalcitonin 0.07 0.05-0.5 ng/mL Test 12/22/24 07:03 Range/Units Hemoglobin A1c 6.0 4.0-6.0 % Estimated Average Glucose (eAG) 126 70-126 mg/dL Diagnostics / Radiology: 2D echo 12/22/2024: Conclusion The left ventricle is normal size. LVEF is 55-60%. The left ventricular diastolic function is normal. The right ventricle is normal size. The right ventricular systolic function is normal. The left atrium size is normal. The right atrium size is normal. Mild aortic regurgitation. Mitral regurgitation is trace to mild. There is no pericardial effusion. DICTATED BY: DIANA PHOENIX MD DATE: 12/22/24 1346 Impression and Plan: Generalized weakness and presyncope: Recent UTI 12/20/2024: Recurrent hyponatremia with admission sodium of 127: -no active cardiac issues. Cardiac troponin and EKG normal. -2D echo 12/22/2024 demonstrated an LVEF of 55-60% and normal diastolic function. -cleared for discharge home from a cardiac viewpoint Comorbidities: Recurrent hyponatremia Hypokalemia with hydrochlorothiazide in the past Multidrug resistant hypertension Hyperlipidemia Pre diabetes RODRIGUEZ RAE MD Dec 23, 2024 10:31
[2024-12-23 10:47] LABS: COVID19 (SARS ANTIGEN RAPID) PRESUMPTIVE NEGATIVE (NEGATIVE); INFLUENZA TYPE A Negative For Type A (NEGATIVE); INFLUENZA TYPE B Negative For Type B (NEGATIVE)
[2024-12-23] MEDS: PoTASSium chloRIDE 20MEQ ER 20 MEQ ERTAB PO ONE (11:48)
[2024-12-23 11:52] VITALS: BP 110/82; PULSE 79; RESP 16; TEMP 98.2; O2SAT 97
--- NOTE | 2024-12-23 16:58 | DS ---
[facility] DISCHARGE SUMMARY Date Patient Seen: Dec 23, 2024 Time of Visit: 16:57 Supervising Physician: Regino Montero MD Primary Care Physician; Kasey Kaplan DO Outpatient Specialists: Inpatient Consults: Dr Mcgregor PROBLEM LIST: Body weakness, resolved Hypervolemia Hyponatremia, resolving COPD with interstitial fibrosis Anemia chronic disease Former smoker 15 years Chronic problem list: Hypertension, anxiety, acid reflex, COPD, hyperlipidemia History admission due to severe hyponatremia ] HOSPITAL COURSE: HPI (per admitting provider) The patient presented with progressive weakness, jaundice, and multiple near- falls. She denied chest pain, dyspnea, nausea, vomiting, diarrhea, or actual ground-level falls. No head trauma was reported. Admission findings: Sodium: 127 mmol/L Chest X-ray: clear, no acute cardiopulmonary pathology TSH and cortisol: normal Afebrile, on room air Urine osmolality pending at time of admission Management: Admitted for observation. Received normal saline at 75 mL/hr. Sodium improved to 134 mmol/L at discharge. Potassium noted at3.0, replaced with 40 mEq PO; patient is on home potassium 10 mEq daily. Serum osmolality: 269. BNP: 165. Albumin: 2.9. Given sodium chloride tablets 1 g PO BID 2 days. Cardiac evaluation: 2D echocardiogram: LVEF 5560%, RVSP 19.4 mmHg, mild aortic regurgitation, trace-mild mitral regurgitation, no pericardial effusion. Cardiology consulted; patient cleared for outpatient follow-up. 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 Cardiac troponin and EKG normal. -2D echo 12/22/2024 demonstrated an LVEF of 55-60% and normal diastolic function. -cleared for discharge home from a cardiac viewpoint PROCEDURES: as mentioned above Pt hemodynamically stable and afebrile at time of discharge. PCP notified of patients admission, hospital course and discharge. New Medications: Sodium Chloride (NaCl) 1,000 Mg Tab 1000 MG PO BID, #4 TAB Continued Medications: Alprazolam (Alprazolam) 0.25 Mg Tablet 0.25 MG PO TID, TAB Amlodipine Besylate (Amlodipine Besylate) 10 Mg Tablet 1 TAB PO DAILY for 30 Days, #30 TAB 0 Refills Aspirin (Aspirin 81MG Chew Tab) 81 Mg Tab.chew 1 TAB PO DAILY for 30 Days, #30 TAB 0 Refills Atorvastatin Calcium (Lipitor) 20 Mg Tab 1 TAB PO DAILY for 30 Days, #30 TAB 0 Refills Brimonidine Tartrate (Alphagan P) 0.1 % Drops 1 DROP OP BID for 30 Days, #5 ML 0 Refills Dorzolamide HCl/Timolol Maleat (Dorzolamide-Timolol Eye Drops) 22.3 Mg-6.8 Mg/Ml Drops 1 DROP OP BID, #10 ML 0 Refills Esomeprazole Magnesium (Esomeprazole Magnesium) 40 Mg Capsule.dr 1 CAP PO DAILY for 30 Days, #30 CAP 0 Refills Metoprolol Succinate (Metoprolol Succinate) 50 Mg Tab.er.24h 1 TAB PO BID for 30 Days, #30 TAB 0 Refills Nitrofurantoin Monohyd/M-Cryst (Nitrofurantoin [place]-Mcr 100 mg) 100 Mg Capsule 1 CAP PO BID for 7 Days, #14 CAP 0 Refills Olmesartan Medoxomil (Olmesartan Medoxomil) 40 Mg Tablet 1 TAB PO DAILY for 30 Days, #30 TAB 0 Refills Potassium Chloride (Potassium Chloride) 10 Meq Tab.er.prt 1 TAB PO DAILY for 30 Days, #30 TAB 0 Refills Prednisolone Acetate/Pf (Prednisolone Acet 1% Eye Drop) 1 % Drops.susp 1 DROP OD DAILY for 30 Days, #5 ML 0 Refills PHYSICAL EXAM: GENERAL: alert, weak, awake oriented x 3 HEENT: EOMI, Sclera non icteric, moist mucosa NECK: Supple, no JVD, trachea midline LUNGS: Clear breath sounds bilaterally. No wheezes HEART: Regular rate and rhythm. Normal S1 and S2, without murmurs ABD: Abdomen soft, nontender. Bowel sounds present EXT: No clubbing cyanosis or edema NEURO: Alert and oriented to person, follows commands FOLLOW-UP: Primary Care Physician: within 1-3 days for electrolyte monitoring and ongoing management Cardiology: routine outpatient follow-up as previously arranged Pulmonology: follow-up for COPD and interstitial lung disease (as needed) RECOMMENDATIONS: See Discharge Instructions Disposition Discharged home with [id number] and caregiver support. Patient and family educated on fluid restriction per PCP guidance, medication adherence, and return precautions for weakness, confusion, dizziness, or recurrent falls. This case was seen and discussed with my supervising physician. More than 30 minutes spent on discharge process, including evaluation of the patient, disc ussion with nursing staff, medication reconciliation and follow-up appointments ATTESTATION BY PHYSICIAN I attest that I reviewed and discussed the case with the Physician Asphalt Dauber as well as agree with the Physician Asphalt Dauber's findings, plans of care, and documentation above. Regino Damon MD, [facility] Dec 23, 2024 16:58
== END 2024-12-23 12:10 | disposition home or self-care (01) ==
LOC: EDH 06:41 → EDHIP 09:22
PROVIDERS: ADMIT Internal Medicine; ATTEND Internal Medicine
DX: R55 Syncope and collapse (principal); E78.00 Pure hypercholesterolemia, unspecified; E86.0 Dehydration; E87.1 Hypo-osmolality and hyponatremia; E87.6 Hypokalemia; E87.70 Fluid overload, unspecified; I10 Essential (primary) hypertension; F41.9 Anxiety disorder, unspecified; D63.8 Anemia in other chronic diseases classified elsewhere; I25.10 Atherosclerotic heart disease of native coronary artery without angina pectoris; Z87.891 Personal history of nicotine dependence; Z88.0 Allergy status to penicillin; Z20.822 Contact with and (suspected) exposure to COVID-19; Z90.49 Acquired absence of other specified parts of digestive tract; R79.1 Abnormal coagulation profile
CPT/HCPCS: 96360; 96361 ×2; 99285; 83036; 84443 ×2; 82550; 83735; 84484; 80053 ×2; 85025; 83935; 82533; 81003; 36415 ×2; 71045; 93306; 93356; 93005; 84145; 96372; 83880; 87804 ×2; 83930; 87426; G0378 ×27; J1650; 80048

== ENCOUNTER 2025-01-23 09:17 | Emergency (ER) | payer OTHER, MEDICARE ==
[~2025-01-23] VITALS: Ht 160 cm; Wt 66.7 kg
[~2025-01-23 09:17] MED LIST changes: +NACL1 PO
[2025-01-23 10:01] LABS: IMMATURE GRANULOCYTE ABSOLUTE 0.11 K/uL (0-1); NUCLEATED RED BLOOD CELLS 0.0 % (0.0-0.19); PLATELET COUNT (AUTO) 264 K/uL (130-400); RED BLOOD CELL COUNT(AUTO) 3.97 MIL/uL (4.00-5.50); RED CELL DISTRIBUTION WIDTH 14.0 % (11.0-15.5); WHITE BLOOD COUNT (AUTO) 6.9 K/uL (4.8-10.8)
[2025-01-23 10:36] LABS: ASPARTATE AMINOTRANSFERASE 16.0 U/L (10-37); CREATINE KINASE, TOTAL 38.0 U/L (21-232); CREATININE 0.7 mg/dL (0.5-1.0); GLOMERULAR FILTR. RATE CALC 86.0 mL/min (>90); GLUCOSE,RANDOM 104.0 mg/dL (70-105); SODIUM SERUM 125.0 mmol/L (136-145); TOTAL PROTEIN, SERUM 6.8 g/dL (6.0-8.3); UREA NITROGEN, BLOOD 11.0 mg/dL (7-18)
--- NOTE | 2025-01-23 10:50 | HMCIMG ---
EXAM: CT Head Without IV contrast. CLINICAL HISTORY: weakness TECHNIQUE: Axial computed tomography images of the head/brain without intravenous contrast. COMPARISON: None provided. 09/02/2024. FINDINGS: BRAIN: No acute bleed or infarct. Stable mild chronic ischemic change. VENTRICLES: No hydrocephalus. ORBITS: The orbits are unremarkable. SINUSES AND MASTOIDS: The paranasal sinuses and mastoid air cells are clear. BONES: No fracture. SOFT TISSUES: Unremarkable. IMPRESSION: No acute bleed or infarct. Stable mild chronic ischemic change. /[place]
[2025-01-23 11:00] VITALS: TEMP 98.6
--- NOTE | 2025-01-23 11:07 | EKG ---
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
[2025-01-23] MEDS: 0.9%NACL 1000ML 1,000 ML IV ONE (11:58)
[2025-01-23 12:11] LABS: APPEARANCE,URINE CLEAR (CLEAR); GLUCOSE, URINE (UA) NEGATIVE (NEGATIVE); LEUKOCYTE ESTERASE ,URINE 25 Leu/uL (NEGATIVE); NITRATE,URINE NEGATIVE (NEGATIVE); OCCULT BLOOD,URINE NEGATIVE (NEGATIVE)
[2025-01-23 12:16] LABS: ADD UA MICROSCOPIC YES
[2025-01-23 12:26] LABS: SQUAMOUS EPITHELIAL CELL,UR RARE /HPF (0-2)
[2025-01-23 13:15] VITALS: BP 129/80; PULSE 68; RESP 20; O2SAT 99
[2025-01-23] MEDS ORDERED: ONDA-243 PO (13:39)
--- NOTE | 2025-01-23 13:39 | ERN ---
ED Note History of Present Illness Stated Complaint: WEAKNESS Chief Complaint: Weakness Time Seen by MD: 09:24 Dictation: 84-year-old female presenting to the emergency department with nausea and generalized weakness over the past few days patient has had similar episodes w hen her sodium levels drop in his scheduled to see her specialist tomorrow. No fever no chest pain or shortness of breath. Allergies: Coded Allergies: Penicillins (Unverified Allergy, Unknown, 02/09/19) ciprofloxacin (Unverified Allergy, Unknown, 03/18/24) diphenhydramine (Unverified Allergy, Unknown, 02/09/19) sulfamethoxazole (Unverified Allergy, Unknown, 03/18/24) trimethoprim (Unverified Allergy, Unknown, 03/18/24) Home Meds Active Scripts Sodium Chloride (NaCl) 1,000 Mg Tab, 1000 MG PO BID, #4 TAB Prov:MOSES WHITING AGACN 12/23/24 Reported Medications Prednisolone Acetate/Pf (Prednisolone Acet 1% Eye Drop) 1 % Drops.susp, 1 DROP OD DAILY for 30 Days, #5 ML 0 Refills 11/25/24 Nitrofurantoin Monohyd/M-Cryst (Nitrofurantoin [place]-Mcr 100 mg) 100 Mg Capsule, 1 CAP PO BID for 7 Days, #14 CAP 0 Refills 11/25/24 Brimonidine Tartrate (Alphagan P) 0.1 % Drops, 1 DROP OP BID for 30 Days, #5 ML 0 Refills 03/18/24 Dorzolamide HCl/Timolol Maleat (Dorzolamide-Timolol Eye Drops) 22.3 Mg-6.8 Mg/Ml Drops, 1 DROP OP BID, #10 ML 0 Refills 03/18/24 Esomeprazole Magnesium (Esomeprazole Magnesium) 40 Mg Capsule.dr, 1 CAP PO DAILY for 30 Days, #30 CAP 0 Refills 03/18/24 Alprazolam (Alprazolam) 0.25 Mg Tablet, 0.25 MG PO TID, TAB 03/18/24 Aspirin (ASPIRIN 81MG CHEW TAB) 81 Mg Tab.chew, 1 TAB PO DAILY for 30 Days, #30 TAB 0 Refills 01/26/24 Atorvastatin Calcium (LIPITOR) 20 Mg Tab, 1 TAB PO DAILY for 30 Days, #30 TAB 0 Refills 01/25/24 Olmesartan Medoxomil (Olmesartan Medoxomil) 40 Mg Tablet, 1 TAB PO DAILY for 30 Days, #30 TAB 0 Refills 01/25/24 Amlodipine Besylate (Amlodipine Besylate) 10 Mg Tablet, 1 TAB PO DAILY for 30 Da ys, #30 TAB 0 Refills 01/25/24 Potassium Chloride (Potassium Chloride) 10 Meq Tab.er.prt, 1 TAB PO DAILY for 30 Days, #30 TAB 0 Refills 01/25/24 Metoprolol Succinate (Metoprolol Succinate) 50 Mg Tab.er.24h, 1 TAB PO BID for 30 Days, #30 TAB 0 Refills 01/25/24 Past Medical History Past Medical History: Anxiety, High Cholesterol, Hypertension Surgical History: Surgical History Other: LT EYE SX Family History: Negative Social History: Negative History: Not Applicable Review of System Dictation Constitutional: Negative for fever,chills, and weight loss Eyes: Negative for injury, pain,redness, and discharge ENT: Negative for injury,pain or swelling Cardiovascular: Negative for chest pain, palpitations, and edema Respiratory: Negative for shortness of breath, cough, and wheezing, Abdomen/GI: Per HPI : Negative for injury, bleeding and discharge MS/Extremity: Negative for injury and deformity Skin: Negative for rash, and discoloration Neuro per HPI Initial Vital Sign VS Vital Signs Date Time Temp Pulse Resp B/P (MAP) Pulse Ox O2 Delivery O2 Flow Rate FiO2 01/23/25 09:21 97.5 16 125/71 97 Room Air 0 01/23/25 09:25 60 21 Physical Exam Dictation General: awake, alert, NAD Head/Face: Normocephalic, atraumatic Eyes: PERRL, EOMI, vision at baseline ENT: oral cavity clear, TMs clear, no signs of infection Neck: Trachea midline, supple, no nuchal rigidity Cardiovascular: RRR, normal S1/S2, No MRGs, no JVD Respiratory: CTAB, no respiratory distress, No rales or wheezes Abdomen: Soft, non-tender, non-distended, normal bowel sounds, no guarding or rebound. Skin: Warm, dry, normal turgor, no rash MS/Extremity: Pulses equal, no cyanosis, neurovascular intact, FROM Neuro: COAx4, GCS 15, strength 5/5, CN 2-12 intact, normal cerebellar exam, normal gait, Psych: Normal behavior, mood, and affect normal Results (Laboratory/Radiology) Laboratory/Radiology Laboratory Tests Test 01/23/25 09:54 01/23/25 11:48 White Blood Count 6.9 K/uL (4.8-10.8) Red Blood Count 3.97 MIL/uL (4.00-5.50) L Hemoglobin 10.8 g/dL (12.0-16.0) L Hematocrit 32.1 % (36-48) L Mean Corpuscular Volume 80.9 fL (79-99) Mean Corpuscular Hemoglobin 27.2 pg (27.0-33.0) Mean Corpuscular Hemoglobin Concent 33.6 g/dL (32.0-36.0) Red Cell Distribution Width 14.0 % (11.0-15.5) Platelet Count 264 K/uL (130-400) Mean Platelet Volume 8.7 fL (7.5-10.5) Immature Granulocyte % (Auto) 1.6 % (0-1) H Neutrophils (%) (Auto) 62.2 % (40.0-77.0) Lymphocytes (%) (Auto) 23.0 % (21.0-51.0) Monocytes (%) (Auto) 12.6 % (3.0-13.0) Eosinophils (%) (Auto) 0.3 % (0.0-8.0) Basophils (%) (Auto) 0.3 % (0.0-5.0) Neutrophils # (Auto) 4.3 K/uL (1.8-7.7) Lymphocytes # (Auto) 1.6 K/uL (1.0-4.8) Monocytes # (Auto) 0.9 K/uL (0.1-1.0) Eosinophils # (Auto) 0.02 K/uL (0.00-0.70) Basophils # (Auto) 0.02 K/uL (0.00-0.20) Absolute Immature Granulocyte (auto 0.11 K/uL (0-1) Nucleated Red Blood Cells 0.0 % (0.0-0.19) Sodium Level 125 mmol/L (136-145) L Potassium Level 3.9 mmol/L (3.5-5.1) Chloride Level 90 mmol/L (101-111) *L Carbon Dioxide Level 24 mmol/L (21-32) Blood Urea Nitrogen 11 mg/dL (7-18) Creatinine 0.7 mg/dL (0.5-1.0) Glomerular Filtration Rate Calc 86 mL/min (>90) Random Glucose 104 mg/dL (70-105) Total Calcium 8.7 mg/dL (8.5-10.1) Total Bilirubin 0.5 mg/dL (0.2-1.0) Direct Bilirubin 0.2 mg/dL (0.0-0.3) Aspartate Amino Transf (AST/SGOT) 16 U/L (10-37) Alanine Aminotransferase (ALT/SGPT) 17 U/L (12-78) Alkaline Phosphatase 78 U/L (50-136) Total Creatine Kinase 38 U/L (21-232) # Troponin I High Sensitivity 8 ng/L (4-50) Total Protein 6.8 g/dL (6.0-8.3) Albumin 3.4 g/dL (3.5-5.0) L Lipase 45 U/L (16-77) Urine Color COLORLESS (YELLOW) Urine Appearance CLEAR (CLEAR) Urine pH 6.5 (5.0-8.0) Urine Specific [place] 1.002 (1.001-1.031) Urine Protein NEGATIVE mg/dL (NEGATIVE) Urine Glucose (UA) NEGATIVE mg/dL (NEGATIVE) Urine Ketones NEGATIVE mg/dL (NEGATIVE) Urine Occult Blood NEGATIVE (NEGATIVE) Urine Nitrate NEGATIVE (NEGATIVE) Urine Bilirubin NEGATIVE mg/dL (NEGATIVE) Urine Urobilinogen 0.2 mg/dL (0.2-1.0) Urine Leukocyte Esterase 25 Kelly/uL (NEGATIVE) H Urine RBC 0-1 /HPF (0-1) Urine WBC 2-5 /HPF (0-1) H Urine Squamous Epithelial Cells RARE /HPF (0-2) Urine Bacteria None /HPF (None Seen) Labs Reviewed?: Yes EKG Comment: Heart rate 77 normal sinus rhythm normal intervals no STEMI or STEMI equivalent ED Course ED Course Orders Procedure Category Date Status Time 12 Lead Ekg Tracing- EKG 01/23/25 Resulted Technical 09:40 Basic Metabolic Panel LAB 01/23/25 Complete 09:40 Cbc With Differential LAB 01/23/25 Complete 09:40 Hepatic Function Panel LAB 01/23/25 Complete 09:40 Creatine Kinase, Total LAB 01/23/25 Complete 09:40 Lipase LAB 01/23/25 Complete 09:40 Troponin I High LAB 01/23/25 Complete Sensitivity 09:40 Urinalysis Profile LAB 01/23/25 Complete 09:40 Chest 1vw RAD 01/23/25 Taken 09:40 Ct Head/Brain W/O CT 01/23/25 Resulted Contrast 09:40 Ondansetron 4mg Inj PHA 01/23/25 Complete (Zofran 4mg Inj) 10:00 0.9%Nacl 1000ml (Ns PHA 01/23/25 Complete 1000ml) 10:00 Current Medications Medications (Trade) Dose Ordered Sig/Sukh Route PRN Reason Start Time Stop Time Status Last Admin Dose Admin Ondansetron HCl (zoFRAN 4MG INJ) 4 mg ONCE ONCE IVP 01/23/25 10:00 01/23/25 10:01 DC Sodium Chloride 1,000 ml @ 0 mls/hr ONCE ONCE IV 01/23/25 10:00 01/23/25 10:01 DC 01/23/25 11:58 Vital Signs Date Time Temp Pulse Resp B/P (MAP) Pulse Ox O2 Delivery O2 Flow Rate FiO2 01/23/25 09:30 74 20 126/67 97 Room Air* 0 21 01/23/25 09:25 97.5 60 16 125/71 97 Room Air* 0 21 01/23/25 09:21 97.5 16 125/71 97 Room Air 0 Medical Decision Making MDM MDM: Differential diagnosis: Rationale: Tests considered and ordered secondary to shared decision making include: labs, ECG and radiology Previous outside records reviewed: Old ER visits. Risk of complication and/or morbidity or mortality of patient management: None Medications-Per medication reconciliation Need for hospitalization: Patient does meet criteria for hospitalization. Need for emergency major/minor surgery: No There are no social concerns with this patient. Prescription drug management Prescriptions will include symptomatic care Patient's prior external medical records from other ER visits were reviewed by me as indicated. Prior testing and results from previous visits were reviewed. Prior tests were taken into account with medical decision making and resource utilization, independent historian/historians were used to obtain complete medical history. I independently interpreted the test that were performed, results were reviewed by me and considered findings on radiology if ordered. Medical management and examination interpretation discussions were had by me with other qualified healthcare professionals as indicated for the patient's care. 84-year-old female presenting to the emergency department with generalized weakness found to have low sodium and chloride, no signs of neurological change, sodium level 125, patient was given IV fluids and wants to go home sees her specialist in his on salt tablets. DX & DISP Disposition: Discharge Departure Impression: Primary Impression: Dehydration Additional Impression: Hyponatremia Condition: Stable Scripts Ondansetron (Ondansetron Odt) 4 Mg Tab.rapdis 4 MG PO BID for vomiting for 5 Days, #10 TAB Prov: KLEVER RATLIFF MD 01/23/25 Referrals: MICKI CHILEL DO (PCP) KLEVER RATLIFF MD Jan 23, 2025 13:39
--- NOTE | 2025-01-23 15:06 | HMCIMG ---
CHEST 1VW REASON: gbw COMPARISON: Prior chest radiograph from 12/22/2024 is available. FINDINGS: Single view of the chest was obtained. Lungs are clear. Heart size is normal. There is uncoiling atherosclerotic change of thoracic aorta. There is no pulmonary vascular congestion. Mediastinum and bony thorax appear unremarkable. IMPRESSION: 1. No acute cardiopulmonary process and unchanged from prior study..
== END 2025-01-23 14:06 | disposition home or self-care (01) ==
LOC: EDH 09:17
DX: E86.0 Dehydration (principal); E87.1 Hypo-osmolality and hyponatremia; E78.00 Pure hypercholesterolemia, unspecified; I10 Essential (primary) hypertension; F41.9 Anxiety disorder, unspecified; Z88.0 Allergy status to penicillin; Z88.1 Allergy status to other antibiotic agents; Z88.2 Allergy status to sulfonamides; Z88.8 Allergy status to other drugs, medicaments and biological substances; Z79.82 Long term (current) use of aspirin; Z79.899 Other long term (current) drug therapy
CPT/HCPCS: 36415; 70450; 71045; 80048; 80076; 81001; 82550; 83690; 84484; 85025; 93005; 96360; 99285; J7030